=== PATIENT | female | born 1985 | race Caucasian/White ===

== ENCOUNTER → 2017-10-10 | Outpatient (CLI) | payer BC ==
[2017-10-10 09:14] LABS: Basophils % (A) 0 %; Eosinophils # (A) 0.4 k/uL (0-0.7); Eosinophils % (A) 5 %; HCT 37.3 % (34.0-46.0); HGB 12.5 gm/dL (11.4-16.0); Lymphocytes # (A) 1.9 k/uL (1.0-4.8); Lymphocytes % (A) 22 %; MCH 26.9 pg (25.0-35.0); MCHC 33.5 g/dL (31.0-37.0); MCV 80.5 fL (80.0-100.0); Mean Platelet Volume 7.4; Monocytes # (A) 0.4 k/uL (0-1.0); Monocytes % (A) 5 %; Neutrophils # (A) 5.8 k/uL (1.3-7.7); Neutrophils % (A) 67 %; Platelet Count 213 k/uL (150-450); RBC 4.63 m/uL (3.80-5.40); RDW 14.6 % (11.5-15.5); WBC 8.6 k/uL (3.8-10.6)
[2017-10-10 09:47] LABS: ALT 19 U/L (9-52); AST 11 U/L (14-36); Albumin 3.5 g/dL (3.5-5.0); Alkaline Phosphatase 115 U/L (38-126); Anion Gap 9 mmol/L; Blood Urea Nitrogen 14 mg/dL (7-17); Carbon Dioxide 28 mmol/L (22-30); Chloride 102 mmol/L (98-107); Cholesterol 156 mg/dL (<200); Glucose 233 mg/dL (74-99); HDL Cholesterol 56 mg/dL (40-60); LDL Cholesterol,Calculated 77 mg/dL (0-99); Potassium 4.1 mmol/L (3.5-5.1); Sodium 139 mmol/L (137-145); Total Bilirubin 0.4 mg/dL (0.2-1.3); Total Protein 6.1 g/dL (6.3-8.2); Triglycerides 117 mg/dL (<150)
[2017-10-10 10:02] LABS: T4, Free (Free Thyroxine) 1.07 ng/dL (0.78-2.19)
[2017-10-10 20:30] LABS: Hemoglobin A1C 10.7 % (4.0-6.0)
== END | disposition home or self-care (01) ==
LOC: LABWHC1 07:39
PROVIDERS: ATTEND Family Medicine
DX: E03.9 Hypothyroidism, unspecified (principal); E11.65 Type 2 diabetes mellitus with hyperglycemia
CPT/HCPCS: 36415; 80053; 80061; 83036; 84439; 84443; 84481; 85025

== ENCOUNTER → 2018-03-28 | Outpatient (CLI) | payer OTHER ==
[2018-03-28 08:40] LABS: Basophils % (A) 1 %; Eosinophils # (A) 0.3 k/uL (0-0.7); Eosinophils % (A) 4 %; HCT 36.2 % (34.0-46.0); HGB 11.7 gm/dL (11.4-16.0); Hypochromasia Slight; Lymphocytes # (A) 1.9 k/uL (1.0-4.8); Lymphocytes % (A) 23 %; MCH 25.9 pg (25.0-35.0); MCHC 32.3 g/dL (31.0-37.0); MCV 80.3 fL (80.0-100.0); Mean Platelet Volume 7.7; Monocytes # (A) 0.4 k/uL (0-1.0); Monocytes % (A) 4 %; Neutrophils # (A) 5.7 k/uL (1.3-7.7); Neutrophils % (A) 67 %; Platelet Count 230 k/uL (150-450); RDW 13.9 % (11.5-15.5); WBC 8.4 k/uL (3.8-10.6)
[2018-03-28 09:51] LABS: ALT 30 U/L (9-52); AST 15 U/L (14-36); Albumin 3.6 g/dL (3.5-5.0); Alkaline Phosphatase 150 U/L (38-126); Anion Gap 8 mmol/L; Blood Urea Nitrogen 11 mg/dL (7-17); Calcium 9.1 mg/dL (8.4-10.2); Carbon Dioxide 28 mmol/L (22-30); Chloride 103 mmol/L (98-107); Cholesterol 141 mg/dL (<200); Glucose 204 mg/dL (74-99); HDL Cholesterol 50 mg/dL (40-60); LDL Cholesterol,Calculated 63 mg/dL (0-99); Potassium 4.5 mmol/L (3.5-5.1); Sodium 139 mmol/L (137-145); Total Bilirubin 0.3 mg/dL (0.2-1.3); Total Protein 5.9 g/dL (6.3-8.2); Triglycerides 141 mg/dL (<150)
[2018-03-28 17:52] LABS: Hemoglobin A1C 10.2 % (4.0-6.0)
== END | disposition home or self-care (01) ==
LOC: LABWHC1 07:45
PROVIDERS: ATTEND Family Medicine
DX: E11.65 Type 2 diabetes mellitus with hyperglycemia (principal); E03.9 Hypothyroidism, unspecified
CPT/HCPCS: 36415; 80053; 80061; 82043; 82570; 83036; 84443; 85025

== ENCOUNTER 2018-07-16 21:24 | Inpatient (IN) | payer OTHER ==
[2018-07-16 22:54] LABS: INR 2.5 (<1.2); Partial Thromboplastin Time 27.1 sec (22.0-30.0); Prothrombin Time 22.7 sec (9.0-12.0)
[2018-07-16 23:08] LABS: Anisocytosis Slight; HCT 20.5 % (34.0-46.0); Hypochromasia Marked; MCH 26.6 pg (25.0-35.0); MCHC 31.6 g/dL (31.0-37.0); MCV 84.3 fL (80.0-100.0); Mean Platelet Volume 8.8; Platelet Count 268 k/uL (150-450); Poikilocytosis Marked; RBC 2.44 m/uL (3.80-5.40); RDW 16.6 % (11.5-15.5)
[2018-07-16 23:12] LABS: HGB 6.5 gm/dL (11.4-16.0)
[2018-07-16] MEDS ORDERED: NALOXONE 0.4 MG/ML 1 ML VIAL IV PRN (23:23)
[2018-07-16] MEDS ORDERED: ONDANSETRON 4 MG/2 ML VIAL IVP PRN (23:23)
--- NOTE | 2018-07-16 23:32 | ED ---
Female Urogenital HPI - General Chief complaint: Vaginal Bleeding Stated complaint: Sent by DR- blood transfusion Time Seen by Provider: 07/16/18 23:16 Source: patient Limitations: no limitations - History of Present Illness Initial comments: This patient is a 32-year-old woman with history of protein C+S deficiency, previous DVT, who is taking Coumadin. She presents after being directed here from her primary physician's office. She had gone there today to be checked as she was feeling very fatigued and lightheaded and she was having a prolonged period. The patient states that her periods typically last 2 weeks, this one is lasting closer 3, and she is having large blood clots as well. She states that they checked some lab tests at the clinic today and found her hemoglobin to be 6.4. They then directed her to come to the hospital to have a blood transfusion. Complaint: vaginal bleeding Onset/Timin -: week(s) Location: suprapubic Radiation: non-radiating Severity: mild Quality: cramping Consistency: constant Improves with: none Worsens with: none Patient : No Associated Symptoms: vaginal bleeding, shortness of breath - Related Data Home Medications Medication Instructions Recorded Confirmed Aspirin EC [Ecotrin Low Dose] 81 mg PO DAILY 05/24/16 07/16/18 Atorvastatin [Lipitor] 10 mg PO HS 05/24/16 07/16/18 Cholecalciferol [Vitamin D3] 4,000 unit PO DAILY 05/24/16 07/16/18 Ferrous Sulfate [Feosol] 325 mg PO BID 05/24/16 07/16/18 Furosemide [Lasix] 40 mg PO DAILY PRN 05/24/16 07/16/18 L.acidoph,Paracasei, B.lactis 1 cap PO DAILY 05/24/16 07/16/18 [Probiotic] Levothyroxine Sodium [Synthroid] 100 mcg PO DAILY 05/24/16 07/16/18 Lisinopril [Zestril] 10 mg PO DAILY 05/24/16 07/16/18 Magnesium 400 mg PO DAILY 05/24/16 07/16/18 Metoprolol Tartrate [Lopressor] 75 mg PO BID 05/24/16 07/16/18 Multivitamins, Thera [Multivitamin] 1 tab PO DAILY 05/24/16 07/16/18 Omeprazole/Sodium Bicarbonate 1 cap PO DAILY 05/24/16 07/16/18 [Zegerid 20 mg Capsule] Warfarin Sodium [Coumadin] 5 mg PO HS 05/24/16 07/16/18 Insulin Glargine,Hum.rec.anlog 35 unit SQ HS 07/16/18 07/16/18 [Basaglar Kwikpen U-100] Insulin Glargine,Hum.rec.anlog 45 unit SQ DAILY 07/16/18 07/16/18 [Basaglar Kwikpen U-100] Insulin Lispro [Admelog Solostar] See Protocol SQ AC-TID 07/16/18 07/16/18 medroxyPROGESTERone [Provera] 10 mg PO DAILY 07/16/18 07/16/18 Allergies Allergy/AdvReac Type Severity Reaction Status Date / Time clarithromycin [From Biaxin] Allergy Itching Verified 07/16/18 22:15 dapagliflozin [From Farxiga] Allergy Swelling Verified 07/16/18 22:15 Review of Systems ROS Statement: Those systems with pertinent positive or pertinent negative responses have been documented in the HPI. ROS Other: All systems not noted in ROS Statement are negative. Constitutional: Denies: fever, chills Respiratory: Denies: cough, dyspnea Cardiovascular: Denies: chest pain, palpitations, syncope Gastrointestinal: Reports: as per HPI, abdominal pain (Suprapubic cramping). Denies: nausea, vomiting Genitourinary: Reports: abnormal menses. Denies: dysuria, hematuria, discharge Musculoskeletal: Denies: back pain Skin: Denies: rash Neurological: Denies: headache, weakness, paresthesias Hematological/Lymphatic: Reports: easy bleeding (Taking Coumadin) Past Medical History Past Medical History: Diabetes Mellitus, Thyroid Disorder Additional Past Medical History / Comment(s): cardiomyopathy, protein c deficiency History of Any Multi-Drug Resistant Organisms: None Reported Past Surgical History: Cholecystectomy Additional Past Surgical History / Comment(s): pacer/defib placed Past Psychological History: No Psychological Hx Reported Smoking Status: Never smoker Past Alcohol Use History: None Reported Past Drug Use History: None Reported - Past Family History Mother Family Medical History: Diabetes Mellitus Father Family Medical History: Cancer, Chest Pain / Angina, Coronary Artery Disease ( CAD), Hyperlipidemia, Hypertension, Myocardial Infarction ([place]) Additional Family Medical History / Comment(s): lung CA newly diagnosed 2 bypass surgeries General Exam Limitations: no limitations General appearance: alert, obese Head exam: Present: atraumatic, normocephalic Eye exam: Absent: scleral icterus, conjunctival injection Pupils: Present: other (There is conjunctival pallor) ENT exam: Present: normal oropharynx, other (Ur is mucosal pallor) Respiratory exam: Present: normal lung sounds bilaterally. Absent: respiratory distress, wheezes, rales, rhonchi, stridor Cardiovascular Exam: Present: regular rate, normal rhythm, normal heart sounds. Absent: systolic murmur, diastolic murmur, rubs, gallop GI/Abdominal exam: Present: soft. Absent: distended, tenderness, guarding, rebound, rigid, mass External exam: Present: normal external exam Speculum exam: Present: vaginal bleeding, other (The patient does have small amount of blood from the cervix, and there was a dime sized clot that I removed from the vagina.). Absent: vaginal discharge, foreign body, tissue, laceration By manual exam: Absent: cervical motion tenderness, adnexal tenderness, adnexal mass, uterine tenderness Extremities exam: Present: normal inspection, normal capillary refill. Absent: pedal edema, calf tenderness Back exam: Present: normal inspection. Absent: CVA tenderness (R), CVA tenderness (L) Neurological exam: Present: alert Skin exam: Present: warm, dry, intact, pallor. Absent: rash, cyanosis, diaphoretic, petechiae, mottled Course Vital Signs 07/16/18 07/16/18 07/16/18 21:53 22:40 22:41 Temperature 98.1 F Pulse Rate 98 92 Respiratory 18 18 Rate Blood Pressure 92/71 129/72 Blood Pressure [Left Arm] O2 Sat by Pulse 99 100 98 Oximetry 07/16/18 07/16/18 07/16/18 22:42 22:50 23:00 Temperature Pulse Rate 90 88 92 Respiratory Rate Blood Pressure 129/72 129/72 129/72 Blood Pressure [Left Arm] O2 Sat by Pulse 99 99 99 Oximetry 07/16/18 07/16/18 07/16/18 23:10 23:20 23:30 Temperature Pulse Rate 86 95 100 Respiratory Rate Blood Pressure 116/69 116/69 116/69 Blood Pressure [Left Arm] O2 Sat by Pulse 99 99 99 Oximetry 07/16/18 07/16/18 07/16/18 23:40 23:50 23:51 Temperature 97.9 F Pulse Rate 89 87 Respiratory 16 Rate Blood Pressure 122/65 115/69 115/69 Blood Pressure [Left Arm] O2 Sat by Pulse 99 98 98 Oximetry 07/16/18 07/17/18 07/17/18 23:54 00:00 00:01 Temperature 97.9 F Pulse Rate 98 89 Respiratory 18 18 Rate Blood Pressure 115/69 129/69 Blood Pressure 123/62 [Left Arm] O2 Sat by Pulse 100 Oximetry 07/17/18 00:10 Temperature Pulse Rate 107 H Respiratory Rate Blood Pressure 129/69 Blood Pressure [Left Arm] O2 Sat by Pulse Oximetry Medical Decision Making - Medical Decision Making This patient is a 32-year-old woman presenting with anemia, symptomatic, due to vaginal bleeding. The patient's case is discussed with admitting physician, also then discussed with the consultants including Dr. Dover from gynecology, Dr. Engle the grocery supervisor, and Dr. Thornton, hematology. Patient is receiving PRBCs here. Currently Dr. Thornton would like to hold off correcting patient's INR due to her underlying risks of DVT/PE. Should the patient require further transfusions may need to have vitamin K and plasma. Serial hemoglobins be obtained, patient will be then ICU overnight - Lab Data Result diagrams: 07/17/18 04:02 07/17/18 04:02 Lab Results 07/16/18 07/16/18 07/16/18 Range/Units 22:20 22:20 22:20 WBC 12.0 H (3.8-10.6) k/uL RBC 2.44 L (3.80-5.40) m/uL Hgb 6.5 L* (11.4-16.0) gm/dL Hct 20.5 L (34.0-46.0) % MCV 84.3 (80.0-100.0) fL MCH 26.6 (25.0-35.0) pg MCHC 31.6 (31.0-37.0) g/dL RDW 16.6 H (11.5-15.5) % Plt Count 268 (150-450) k/uL Hypochromasia Marked Poikilocytosis Marked Anisocytosis Slight PT 22.7 H (9.0-12.0) sec INR 2.5 H (<1.2) APTT 27.1 (22.0-30.0) sec Sodium (137-145) mmol/L Potassium (3.5-5.1) mmol/L Chloride (98-107) mmol/L Carbon Dioxide (22-30) mmol/L Anion Gap mmol/L BUN (7-17) mg/dL Creatinine (0.52-1.04) mg/dL Est GFR (CKD-EPI)AfAm (>60 ml/min/1.73 sqM) Est GFR (CKD-EPI)NonAf (>60 ml/min/1.73 sqM) Glucose (74-99) mg/dL Calcium (8.4-10.2) mg/dL HCG, Quant mIU/mL Blood Type O Negative Blood Type Confirm Blood Type Recheck CABO Indicated Antibody Screen NEGATIVE Crossmatch See Detail Spec Expiration Date 07/19/2018 - 231907/16/18 07/16/18 Range/Units 22:26 23:21 WBC (3.8-10.6) k/uL RBC (3.80-5.40) m/uL Hgb (11.4-16.0) gm/dL Hct (34.0-46.0) % MCV (80.0-100.0) fL MCH (25.0-35.0) pg MCHC (31.0-37.0) g/dL RDW (11.5-15.5) % Plt Count (150-450) k/uL Hypochromasia Poikilocytosis Anisocytosis PT (9.0-12.0) sec INR (<1.2) APTT (22.0-30.0) sec Sodium 133 L (137-145) mmol/L Potassium 4.0 (3.5-5.1) mmol/L Chloride 100 (98-107) mmol/L Carbon Dioxide 23 (22-30) mmol/L Anion Gap 10 mmol/L BUN 13 (7-17) mg/dL Creatinine 0.54 (0.52-1.04) mg/dL Est GFR (CKD-EPI)AfAm >90 (>60 ml/min/1.73 sqM) Est GFR (CKD-EPI)NonAf >90 (>60 ml/min/1.73 sqM) Glucose 330 H (74-99) mg/dL Calcium 8.8 (8.4-10.2) mg/dL HCG, Quant <2.4 mIU/mL Blood Type Blood Type Confirm O Negative Blood Type Recheck Antibody Screen Crossmatch Spec Expiration Date Critical Care Time Critical Care Time: Yes (50 minutes) Disposition Clinical Impression: Menorrhagia, Anemia Disposition: ADMITTED IP TO THIS HOSP Condition: Serious
[2018-07-16 23:33] LABS: Anion Gap 10 mmol/L; Blood Urea Nitrogen 13 mg/dL (7-17); Calcium 8.8 mg/dL (8.4-10.2); Carbon Dioxide 23 mmol/L (22-30); Chloride 100 mmol/L (98-107); Glucose 330 mg/dL (74-99); Sodium 133 mmol/L (137-145)
[2018-07-16] MEDS: SODIUM CHLORIDE 0.9% 1,000 ML IV SCH (23:45)
[2018-07-16 23:52] LABS: HCG,Quantitative Serum <2.4 mIU/mL
[2018-07-17] MEDS ORDERED: INSULIN REGULAR 100 UNIT/ML VIAL SQ STA ×2 (00:19→03:34)
[2018-07-17 01:01] LABS: Glucose,Whole Blood 368 mg/dL (75-99)
--- NOTE | 2018-07-17 01:39 | US ---
EXAMINATION TYPE: US transvaginal DATE OF EXAM: 07/17/2018 COMPARISON: NONE CLINICAL HISTORY: pain. Heavy bleeding x 2 weeks. TECHNIQUE: Transvaginal (TV). Transabdominal sonographic images of the pelvis were acquired. Trans vaginal sonographic images were medically necessary to better assess the following anatomy: EXAM MEASUREMENTS: Uterus: 8.3 x 4.2 x 5.6 cm Endometrial Stripe: 0.5 cm Right Ovary: 3.2 x 1.8 x 2.1 cm Left Ovary: 2.5 x 1.5 x 2.1 cm 1. Uterus: Anteverted wnl 2. Endometrium: wnl 3. Right Ovary: wnl 4. Left Ovary: Limited due to bowel gas. Spectral, color and waveform doppler imaging shows good arterial and venous flow within the ovaries ; there is no evidence for ovarian torsion. 5. Bilateral Adnexa: wnl 6. Posterior cul-de-sac: wnl IMPRESSION: Normal transvaginal pelvic sonogram. No evidence of ovarian torsion. Normal uterus and en dometrium.
[2018-07-17 02:03] VITALS: BMI 48.9
[2018-07-17 03:43] LABS: Glucose,Whole Blood 387 mg/dL (75-99)
[2018-07-17 04:55] LABS: Anisocytosis Slight; Basophils % (A) 0 %; Eosinophils # (A) 0.2 k/uL (0-0.7); Eosinophils % (A) 3 %; Hypochromasia Marked; Lymphocytes # (A) 2.1 k/uL (1.0-4.8); Lymphocytes % (A) 29 %; MCH 26.6 pg (25.0-35.0); MCHC 30.6 g/dL (31.0-37.0); MCV 86.8 fL (80.0-100.0); Mean Platelet Volume 8.7; Monocytes # (A) 0.3 k/uL (0-1.0); Monocytes % (A) 5 %; Neutrophils # (A) 4.4 k/uL (1.3-7.7); Neutrophils % (A) 61 %; Platelet Count 193 k/uL (150-450); Poikilocytosis Marked; RBC 2.27 m/uL (3.80-5.40); RDW 16.7 % (11.5-15.5); WBC 7.2 k/uL (3.8-10.6)
[2018-07-17 05:07] LABS: Anion Gap 5 mmol/L; Blood Urea Nitrogen 12 mg/dL (7-17); Calcium 8.2 mg/dL (8.4-10.2); Carbon Dioxide 26 mmol/L (22-30); Chloride 103 mmol/L (98-107); Glucose 335 mg/dL (74-99); Magnesium 1.5 mg/dL (1.6-2.3); Phosphorus 3.9 mg/dL (2.5-4.5); Potassium 4.2 mmol/L (3.5-5.1); Sodium 134 mmol/L (137-145)
[2018-07-17 05:28] LABS: HCT 19.7 % (34.0-46.0)
[2018-07-17] MEDS: MAGNESIUM SULFATE-D5W PMX 1 GM in DEXTROSE/WATER 1 100ML.BAG IVPB SCH ×2 (06:33→08:37)
--- NOTE | 2018-07-17 06:49 | P.CON ---
Consult Note - . Consult date: 07/17/18 Assessment/Plan:: This is a 32-year-old white female 0 last menstrual period starting 01/2018. Patient presented to her primary care physician's office yesterday, Dr. Edwards. She was noted to be anemic with a hemoglobin of 6.4 and was sent to the hospital for further evaluation. In the emergency room she was symptomatic and tachycardic, and was therefore admitted for blood transfusion. Patient reports being lightheaded and dizzy. The current menses has lasted for almost 3 weeks. She in addition has passed blood clots approximate the size of an egg. Past [employer] history menarche began at the age of 12, 1-2 month interval of menses, 10-14 day usual duration. Patient states she often passes egg-sized clots but has not previously been symptomatic. She is in a relationship with a female partner, sexually active, but contraception is not an issue. She is not planning . Her most recent Pap smear was within the past year and normal Dr. Edwards's office. She denies history of gonorrhea chlamydia HSV or HPV infections. Social history patient denies alcohol or tobacco use. 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 Current medications are many, including Coumadin 5 mg daily. Please see the chart for details. Past medical history is significant for cardiomyopathy, said to be caused by a virus at age 20. Her wares sorter is Dr. Flores. She has protein C deficiency. She has protein S deficiency. She has hypertension, type 2 diabetes, and hypercholesterolemia. Past surgical history significant for pacemaker and defibrillator placed in 2005 , replaced in 2012, followed by Dr. Flores. She had cholecystectomy in 2007. Family history patient's mother at the age of 54 of unknown causes, she will is said to have diabetes. Father age 64 has multiple heart issues and lung cancer. She has 3/2 sisters of whom she knows little about. ALLERGIES include Biaxin to which reports itchy skin and swelling, and for C. diff to which reports her tongue swelling. On exam she is 5 foot 6 inches, 303 pounds, blood pressure 106/48, pulse 94, temperature 97.8. Patient has good dentition. No obvious thyromegaly. Good range of motion in the neck. Breast exam reveals breast be bilaterally symmetric with no skin dimpling, nipple discharge axillary adenopathy or discernible lesions or masses. Chest is clear to auscultation in all tan. Cardiac exam reveals regular rate and rhythm with slight tachycardia. Abdomen is morbidly obese, no organosplenomegaly. Active bowel sounds. No CVA tenderness. Extremities reveal good peripheral pulses, normal range of motion. On pelvic exam external genitalia is well estrogenized. There is a $0.50 piece size clot in the vagina. Cervix is otherwise firm, long, closed. Uterus is small, anteverted anteflex, nontender. Adnexa are negative bilaterally. Ultrasound has been performed, revealing no pelvic masses, small ovaries bilaterally, no fluid in the cul-de-sac, normal size uterus, endometrial thickness of 5 mm. Impression: Menorrhagia, likely due to anticoagulation for protein S deficiency , protein C deficiency and cardiomyopathy. One unit of packed red cells has been given, hemoglobin remained 6.0. Second unit of packed red blood cells has been ordered. Plan: Because endometrial thickness measures only 5 mm, I do not believe a D&C is warranted for this patient. I agree with transfusion of packed red blood cells. I would strongly recommend change of anticoagulation regime, medical doctors following. If bleeding continues to be an issue despite change of medication, we could consider an endometrial ablation. Thank you for the consultation.
[2018-07-17 07:07] LABS: Glucose,Whole Blood 290 mg/dL (75-99)
[2018-07-17 07:27] LABS: Amorphous Sediment,Urine Rare /hpf; Appearance,Urine Clear (Clear); Bilirubin,Urine Negative (Negative); Blood,Urine Large (Negative); Color,Urine Yellow; Glucose,Urine (UA) 4+ (Negative); Ketones,Urine Negative (Negative); Leukocyte Esterase,Urine Negative (Negative); Mucus,Urine Rare /hpf; Nitrite,Urine Negative (Negative); PH, Urine 5.5 (5.0-8.0); Protein,Urine Trace (Negative); RBC,Urine >182 /hpf (0-5); Squamous Epithelial Cell,Urine <1 /hpf (0-4); Urobilinogen,Urine <2.0 mg/dL (<2.0)
[2018-07-17] MEDS: INSULIN ASPART 100 UNIT/ML 1 ML 10 ML VIAL SQ SCH ×6 (08:15→21:11)
[2018-07-17 08:28] LABS: Glucose,Whole Blood 357 mg/dL (75-99)
[2018-07-17] MEDS: PANTOPRAZOLE 40 MG/10 ML VIAL IV SCH (08:36)
[2018-07-17] MEDS ORDERED: INSULIN DETEMIR 100 UNIT/ML 10 ML VIAL SQ SCH ×3 (09:00→21:00)
--- NOTE | 2018-07-17 09:29 | P.CRDCN ---
History of Present Illness Consult date: 07/17/18 History of present illness: This is a 32-year-old female with history of nonischemic cardiomyopathy, status post AICD placement being followed by Dr. Neri. Patient had a last generator change in 2012. Patient was diagnosed to have nonischemic cardiomyopathy with ejection fraction of 10%. Recent studies showed an ejection fraction about 30% . She was being treated with metoprolol, lisinopril and diuretics. She is admitted now with heavy vaginal bleeding. She claims that usually she has any bleeding, but this time it has been heavier.This resulted in anemia requiring blood transfusion. Patient denies any chest pain or shortness of breath and doesn't appear to be acute distress. Patient had evaluation by pouch maker and apparently no source of bleeding could be identified. It is felt that her bleeding is related to Coumadin. Her INR was 2.9. Has there is definite need for anticoagulation therapy, patient may have to explore the possibility of having a filter or consider hysterectomy to stop the bleeding. I discussed this option with the patient. From cardiac standpoint, Patient is stable. We' ll continue with her cardiac medications and also bolus of IV Lasix after blood transfusion. Review of Systems As per the chart Past Medical History Past Medical History: Diabetes Mellitus, Thyroid Disorder Additional Past Medical History / Comment(s): cardiomyopathy, protein c deficiency History of Any Multi-Drug Resistant Organisms: None Reported Past Surgical History: Cholecystectomy Additional Past Surgical History / Comment(s): pacer/defib placed Past Anesthesia/Blood Transfusion Reactions: No Reported Reaction Type of Cardiac Device: Permanent Pacemaker, AICD Device Placement Date:: 2005 implanted lead change 2012 Past Psychological History: No Psychological Hx Reported Smoking Status: Never smoker Past Alcohol Use History: None Reported Past Drug Use History: None Reported - Past Family History Mother Family Medical History: Diabetes Mellitus Father Family Medical History: Cancer, Chest Pain / Angina, Coronary Artery Disease ( CAD), Hyperlipidemia, Hypertension, Myocardial Infarction ([place]) Additional Family Medical History / Comment(s): lung CA newly diagnosed 2 bypass surgeries Medications and Allergies Home Medications Medication Instructions Recorded Confirmed Type Aspirin EC [Ecotrin Low Dose] 81 mg PO DAILY 05/24/16 07/16/18 History Atorvastatin [Lipitor] 10 mg PO HS 05/24/16 07/16/18 History Cholecalciferol [Vitamin D3] 4,000 unit PO DAILY 05/24/16 07/16/18 History Ferrous Sulfate [Feosol] 325 mg PO BID 05/24/16 07/16/18 History Furosemide [Lasix] 40 mg PO DAILY PRN 05/24/16 07/16/18 History L.acidoph,Paracasei, B.lactis 1 cap PO DAILY 05/24/16 07/16/18 History [Probiotic] Levothyroxine Sodium [Synthroid] 100 mcg PO DAILY 05/24/16 07/16/18 History Lisinopril [Zestril] 10 mg PO DAILY 05/24/16 07/16/18 History Magnesium 400 mg PO DAILY 05/24/16 07/16/18 History Metoprolol Tartrate [Lopressor] 75 mg PO BID 05/24/16 07/16/18 History Multivitamins, Thera [Multivitamin] 1 tab PO DAILY 05/24/16 07/16/18 History Omeprazole/Sodium Bicarbonate 1 cap PO DAILY 05/24/16 07/16/18 History [Zegerid 20 mg Capsule] Warfarin Sodium [Coumadin] 5 mg PO HS 05/24/16 07/16/18 History Insulin Glargine,Hum.rec.anlog 35 unit SQ HS 07/16/18 07/16/18 History [Basaglar Kwikpen U-100] Insulin Glargine,Hum.rec.anlog 45 unit SQ DAILY 07/16/18 07/16/18 History [Basaglar Kwikpen U-100] Insulin Lispro [Admelog Solostar] See Protocol SQ AC-TID 07/16/18 07/16/18 History medroxyPROGESTERone [Provera] 10 mg PO DAILY 07/16/18 07/16/18 History Allergies Allergy/AdvReac Type Severity Reaction Status Date / Time clarithromycin [From Biaxin] Allergy Itching Verified 07/16/18 22:15 dapagliflozin [From Farxiga] Allergy Swelling Verified 07/16/18 22:15 Physical Exam Vitals: Vital Signs Temp Pulse Resp BP BP Pulse Ox 07/17/18 09:00 89 18 116/81 07/17/18 08:00 103 H 8 L 133/88 99 07/17/18 07:23 98.7 F 103 H 16 129/90 98 07/17/18 07:00 98 8 L 117/71 97 11/27/18 06:53 98.3 F 104 H 14 117/73 97 07/17/18 06:43 98.0 F 105 H 18 112/68 97 07/17/18 06:00 91 17 111/59 96 07/17/18 05:00 93 107/56 96 07/17/18 04:00 97.8 F 83 18 105/51 94 L 07/17/18 03:00 89 17 111/68 98 07/17/18 02:50 89 9 L 98 07/17/18 02:40 90 11 L 97 07/17/18 02:30 98 14 95 07/17/18 02:20 95 21 96 07/17/18 02:10 90 17 111/68 97 07/17/18 02:00 98.3 F 90 12 111/68 97 07/17/18 01:50 112 H 14 99 07/17/18 01:40 92 16 99 07/17/18 01:30 98.6 F 91 17 123/62 98 07/17/18 01:20 94 13 97 07/17/18 01:10 109 H 17 123/62 100 07/17/18 01:00 97.6 F 96 13 110/60 98 07/17/18 00:55 94 17 96 07/17/18 00:31 98.3 F 95 18 109/56 97 07/17/18 00:10 107 H 129/69 07/17/18 00:01 97.9 F 89 18 129/69 07/17/18 00:00 98 115/69 100 07/16/18 23:54 18 123/62 07/16/18 23:51 97.9 F 87 16 115/69 98 07/16/18 23:50 89 115/69 98 07/16/18 23:40 122/65 99 07/16/18 23:30 100 116/69 99 07/16/18 23:20 95 116/69 99 07/16/18 23:10 86 116/69 99 07/16/18 23:00 92 129/72 99 07/16/18 22:50 88 129/72 99 07/16/18 22:42 90 129/72 99 07/16/18 22:41 98 07/16/18 22:40 92 18 129/72 100 07/16/18 21:53 98.1 F 98 18 92/71 99 Intake and Output 07/16/18 07/17/18 07/17/18 22:59 06:59 14:59 Intake Total 410 240 Output Total 600 700 Balance -190 -460 Intake: IV 100 40 Sodium Chloride 0.9% 1, 100 40 000 ml @ 20 mls/hr IV . Q24H [facility] Rx#:[id number] Oral 200 Blood Product 310 Rc As-1 Unit 0 [id number] Rc Pheresis As3 Unit 310 [id number] Output: Urine 600 700 Other: Voiding Method Bedside Commode # Voids 1 1 Weight 137.438 kg 132.2 kg GENERAL EXAM: Patient is alert and oriented and doesn't appear to be in any acute distress HEENT: Normocephalic. Normal reaction of pupils, equal size, normal range of extraocular motion. No erythema or exudates in the throat. NECK: No masses, no nuchal rigidity. CHEST: No chest wall deformity. LUNGS: Equal air entry with no crackles or wheeze. HEART: S1 and S2 normal with no audible mumurs or gallops. Regular rhythm, femorals equal on both sides.. ABDOMEN: No hepatosplenomegaly, normal bowel sounds, no guarding or rigidity. SKIN: No rashes CENTRAL NERVOUS SYSTEM: No focal deficits. EXTREMITIES: No cyanosis, clubbing or edema. Results 07/17/18 04:02 07/17/18 04:02 Coagulation 07/16/18 Range/Units 22:20 PT 22.7 H (9.0-12.0) sec APTT 27.1 (22.0-30.0) sec CBC 07/16/18 07/17/18 Range/Units 22:20 04:02 WBC 12.0 H 7.2 (3.8-10.6) k/uL RBC 2.44 L 2.27 L (3.80-5.40) m/uL Hgb 6.5 L* 6.0 L* (11.4-16.0) gm/dL Hct 20.5 L 19.7 L* (34.0-46.0) % Plt Count 268 193 (150-450) k/uL Comprehensive Metabolic Panel 07/16/18 07/17/18 Range/Units 22:26 04:02 Sodium 133 L 134 L (137-145) mmol/L Potassium 4.0 4.2 (3.5-5.1) mmol/L Chloride 100 103 (98-107) mmol/L Carbon Dioxide 23 26 (22-30) mmol/L BUN 13 12 (7-17) mg/dL Creatinine 0.54 0.42 L (0.52-1.04) mg/dL Glucose 330 H 335 H (74-99) mg/dL Calcium 8.8 8.2 L (8.4-10.2) mg/dL Current Medications Generic Name Dose Route Start Last Admin Trade Name Freq PRN Reason Stop Dose Admin Acetaminophen 650 mg 07/16/18 23:23 Tylenol Tab PO Q6HR PRN Mild Pain or Fever > 100.5 Sodium Chloride 1,000 mls @ 20 mls/hr 07/16/18 23:30 07/16/18 23:45 Saline 0.9% IV 20 mls/hr .Q24H [facility] Administration Insulin Aspart 0 unit 07/17/18 07:00 07/17/18 08:38 Novolog SQ 10 unit ACHS [facility] Administration Protocol Insulin Detemir 15 unit 07/17/18 21:00 Levemir SQ HS [facility] Insulin Detemir 20 unit 07/17/18 09:00 07/17/18 08:39 Levemir SQ 20 unit DAILY [facility] Administration Lisinopril 5 mg 07/18/18 09:00 Zestril PO DAILY [facility] Metoprolol Tartrate 75 mg 07/17/18 09:22 Lopressor PO BID [facility] Naloxone HCl 0.2 mg 07/16/18 23:23 Narcan IV Q2M PRN Opioid Reversal Ondansetron HCl 4 mg 07/16/18 23:23 Zofran IVP Q8HR PRN Nausea And Vomiting Pantoprazole Sodium 40 mg 07/17/18 09:00 07/17/18 08:36 Protonix IV 40 mg DAILY [facility] Administration Intake and Output 07/16/18 07/17/18 07/17/18 22:59 06:59 14:59 Intake Total 410 240 Output Total 600 700 Balance -190 -460 Intake: IV 100 40 Sodium Chloride 0.9% 1, 100 40 000 ml @ 20 mls/hr IV . Q24H [facility] Rx#:[id number] Oral 200 Blood Product 310 Rc As-1 Unit 0 [id number] Rc Pheresis As3 Unit 310 [id number] Output: Urine 600 700 Other: Voiding Method Bedside Commode # Voids 1 1 Weight 137.438 kg 132.2 kg 07/17/18 04:02 07/17/18 04:02 EKG Interpretations (text) None available Assessment and Plan (1) Cardiomyopathy Current Visit: Yes Status: Acute Code(s): I42.9 - CARDIOMYOPATHY, UNSPECIFIED SNOMED Code(s): 72359017 (2) Chronic congestive heart failure Current Visit: Yes Status: Acute Code(s): I50.9 - HEART FAILURE, UNSPECIFIED SNOMED Code(s): 28316911 (3) Cardiac defibrillator in place Current Visit: Yes Status: Acute Code(s): Z95.810 - PRESENCE OF AUTOMATIC ( IMPLANTABLE) CARDIAC DEFIBRILLATOR SNOMED Code(s): 908577000 Plan: Continue with current management. Resume home medications including beta chavez and CESAR inhibitor. Use bolus of Lasix after transfusion. We'll continue to follow
--- NOTE | 2018-07-17 09:58 | P.CNPUL ---
History of Present Illness Consult date: 07/17/18 Requesting physician: Laurie Dover Reason for consult: other Chief complaint: Vaginal bleeding History of present illness: This is a 32-year-old white female patient of Dr. Edwards, who presented to the emergency department on 07/16/2018 for evaluation of 2 week history of vaginal bleeding, passing clots, fatigue, lightheadedness. Patient has a history of protein C and S deficiency, previous DVT and pulmonary embolism on chronic anticoagulation with Coumadin. Other medical history includes diabetes mellitus, hypothyroidism, hypertension, nonischemic cardiomyopathy with an EF of 30% with AICD placement. Patient had her hemoglobin checked, and he was found to be at 6.4, and she was directed to come to the emergency department for a blood transfusion. Patient was also having some suprapubic cramping, and mild shortness of breath. Initial blood work revealed hemoglobin of 6.5, EDC of 12.0, INR was 2.5, sodium was 133, the rest of the electrolytes and renal profiles were within normal limits. HCG test was stent 2.4, urinalysis showed 4 + glucose, negative for leuks and nitrites. Patient was transfused with 1 unit of packed red blood cells yesterday, this morning her hemoglobin is 6.0, patient is receiving another unit of packed red blood cells and patient has active vaginal bleeding. She was seen in consultation by PER DI[facility] INTERPRETER, and no D&C was warranted for this patient at this time. Patient is seen in the intensive care unit, she is resting comfortably in bed, she denies any distress, no breathing difficulty, no chest pain, no lightheadedness or dizziness. She has mild suprapubic cramping. She is mildly tachycardic with a heart rate of 103 bpm, she is afebrile, hemodynamically stable, not requiring any vasopressor support. Currently on room air, and the pulse ox is 99%. Review of Systems All systems: negative Constitutional: Denies chills, Denies fever Eyes: denies blurred vision, denies pain Ears, nose, mouth and throat: Denies headache, Denies sore throat Cardiovascular: Reports lightheadedness, Denies chest pain, Denies shortness of breath Respiratory: Reports dyspnea, Denies cough Gastrointestinal: Denies abdominal pain, Denies diarrhea, Denies nausea, Denies vomiting Genitourinary: Reports menorrhagia, Denies dysuria, Denies hematuria Musculoskeletal: Denies myalgias Integumentary: Denies pruritus, Denies rash Neurological: Denies numbness, Denies weakness Psychiatric: Denies anxiety, Denies depression Endocrine: Denies fatigue, Denies weight change Past Medical History Past Medical History: Diabetes Mellitus, Thyroid Disorder Additional Past Medical History / Comment(s): cardiomyopathy, protein c deficiency History of Any Multi-Drug Resistant Organisms: None Reported Past Surgical History: Cholecystectomy Additional Past Surgical History / Comment(s): pacer/defib placed Past Anesthesia/Blood Transfusion Reactions: No Reported Reaction Type of Cardiac Device: Permanent Pacemaker, AICD Device Placement Date:: 2005 implanted lead change 2012 Past Psychological History: No Psychological Hx Reported Smoking Status: Never smoker Past Alcohol Use History: None Reported Past Drug Use History: None Reported - Past Family History Mother Family Medical History: Diabetes Mellitus Father Family Medical History: Cancer, Chest Pain / Angina, Coronary Artery Disease ( CAD), Hyperlipidemia, Hypertension, Myocardial Infarction ([place]) Additional Family Medical History / Comment(s): lung CA newly diagnosed 2 bypass surgeries Medications and Allergies Home Medications Medication Instructions Recorded Confirmed Type Aspirin EC [Ecotrin Low Dose] 81 mg PO DAILY 05/24/16 07/16/18 History Atorvastatin [Lipitor] 10 mg PO HS 05/24/16 07/16/18 History Cholecalciferol [Vitamin D3] 4,000 unit PO DAILY 05/24/16 07/16/18 History Ferrous Sulfate [Feosol] 325 mg PO BID 05/24/16 07/16/18 History Furosemide [Lasix] 40 mg PO DAILY PRN 05/24/16 07/16/18 History L.acidoph,Paracasei, B.lactis 1 cap PO DAILY 05/24/16 07/16/18 History [Probiotic] Levothyroxine Sodium [Synthroid] 100 mcg PO DAILY 05/24/16 07/16/18 History Lisinopril [Zestril] 10 mg PO DAILY 05/24/16 07/16/18 History Magnesium 400 mg PO DAILY 05/24/16 07/16/18 History Metoprolol Tartrate [Lopressor] 75 mg PO BID 05/24/16 07/16/18 History Multivitamins, Thera [Multivitamin] 1 tab PO DAILY 05/24/16 07/16/18 History Omeprazole/Sodium Bicarbonate 1 cap PO DAILY 05/24/16 07/16/18 History [Zegerid 20 mg Capsule] Warfarin Sodium [Coumadin] 5 mg PO HS 05/24/16 07/16/18 History Insulin Glargine,Hum.rec.anlog 35 unit SQ HS 07/16/18 07/16/18 History [Basaglar Kwikpen U-100] Insulin Glargine,Hum.rec.anlog 45 unit SQ DAILY 07/16/18 07/16/18 History [Basaglar Kwikpen U-100] Insulin Lispro [Admelog Solostar] See Protocol SQ AC-TID 07/16/18 07/16/18 History medroxyPROGESTERone [Provera] 10 mg PO DAILY 07/16/18 07/16/18 History Allergies Allergy/AdvReac Type Severity Reaction Status Date / Time clarithromycin [From Biaxin] Allergy Itching Verified 07/16/18 22:15 dapagliflozin [From Farxiga] Allergy Swelling Verified 07/16/18 22:15 Physical Exam Vitals: Vital Signs Temp Pulse Resp BP BP Pulse Ox 07/17/18 09:00 89 18 116/81 07/17/18 08:00 103 H 8 L 133/88 99 07/17/18 07:23 98.7 F 103 H 16 129/90 98 07/17/18 07:00 98 8 L 117/71 97 07/17/18 06:53 98.3 F 104 H 14 117/73 97 07/17/18 06:43 98.0 F 105 H 18 112/68 97 07/17/18 06:00 91 17 111/59 96 07/17/18 05:00 93 107/56 96 07/17/18 04:00 97.8 F 83 18 105/51 94 L 07/17/18 03:00 89 17 111/68 98 07/17/18 02:50 89 9 L 98 07/17/18 02:40 90 11 L 97 07/17/18 02:30 98 14 95 07/17/18 02:20 95 21 96 07/17/18 02:10 90 17 111/68 97 07/17/18 02:00 98.3 F 90 12 111/68 97 07/17/18 01:50 112 H 14 99 07/17/18 01:40 92 16 99 07/17/18 01:30 98.6 F 91 17 123/62 98 07/17/18 01:20 94 13 97 07/17/18 01:10 109 H 17 123/62 100 07/17/18 01:00 97.6 F 96 13 110/60 98 07/17/18 00:55 94 17 96 07/17/18 00:31 98.3 F 95 18 109/56 97 07/17/18 00:10 107 H 129/69 07/17/18 00:01 97.9 F 89 18 129/69 07/17/18 00:00 98 115/69 100 07/16/18 23:54 18 123/62 07/16/18 23:51 97.9 F 87 16 115/69 98 07/16/18 23:50 89 115/69 98 07/16/18 23:40 122/65 99 07/16/18 23:30 100 116/69 99 07/16/18 23:20 95 116/69 99 07/16/18 23:10 86 116/69 99 07/16/18 23:00 92 129/72 99 07/16/18 22:50 88 129/72 99 07/16/18 22:42 90 129/72 99 07/16/18 22:41 98 07/16/18 22:40 92 18 129/72 100 07/16/18 21:53 98.1 F 98 18 92/71 99 Intake and Output 07/16/18 07/17/18 07/17/18 22:59 06:59 14:59 Intake Total 410 240 Output Total 600 700 Balance -190 -460 Intake: IV 100 40 Sodium Chloride 0.9% 1, 100 40 000 ml @ 20 mls/hr IV . Q24H [facility] Rx#:[id number] Oral 200 Blood Product 310 Rc As-1 Unit 0 [id number] Rc Pheresis As3 Unit 310 [id number] Output: Urine 600 700 Other: Voiding Method Bedside Commode # Voids 1 1 Weight 137.438 kg 132.2 kg GENERAL EXAM: Alert, pleasant 32-year-old white female comfortable in no apparent distress. HEAD: Normocephalic/atraumatic. EYES: Normal reaction of pupils, equal size. Conjunctiva pink, sclera white. NOSE: Clear with pink turbinates. THROAT: No erythema or exudates. NECK: No masses, no JVD, no thyroid enlargement, no adenopathy. CHEST: No chest wall deformity. Symmetrical expansion. LUNGS: Equal air entry with no crackles, wheeze, rhonchi or dullness. CVS: Regular rate and rhythm, normal S1 and S2, no gallops, no murmurs, no rubs ABDOMEN: Soft, nontender. No hepatosplenomegaly, normal bowel sounds, no guarding or rigidity. EXTREMITIES: No clubbing, no edema, no cyanosis, 2+ pulses and upper and lower extremities. MUSCULOSKELETAL: Muscle strength and tone normal. SPINE: No scoliosis or deformity SKIN: No rashes CENTRAL NERVOUS SYSTEM: Alert and oriented -3. No focal deficits, tone is normal in all 4 extremities. PSYCHIATRIC: Alert and oriented -3. Appropriate affect. Intact judgment and insight. Results - Laboratory Findings CBC and BMP: 07/17/18 04:02 07/17/18 04:02 PT/INR, D-dimer PT 22.7 sec (9.0-12.0) H 07/16/18 22:20 INR 2.5 (<1.2) H 07/16/18 22:20 Abnormal lab findings: Abnormal Labs 07/16/18 07/16/18 07/16/18 22:20 22:20 22:20 WBC 12.0 H RBC 2.44 L Hgb 6.5 L* Hct 20.5 L MCHC RDW 16.6 H PT 22.7 H INR 2.5 H Sodium Creatinine Glucose POC Glucose (mg/dL) Calcium Magnesium Urine Protein Urine Glucose (UA) Urine Blood Urine RBC Urine WBC Amorphous Sediment Urine Mucus Crossmatch See Detail 07/16/18 07/17/18 07/17/18 22:26 00:49 03:31 WBC RBC Hgb Hct MCHC RDW PT INR Sodium 133 L Creatinine Glucose 330 H POC Glucose (mg/dL) 368 H 387 H Calcium Magnesium Urine Protein Urine Glucose (UA) Urine Blood Urine RBC Urine WBC Amorphous Sediment Urine Mucus Crossmatch 07/17/18 07/17/18 07/17/18 04:02 04:02 06:50 WBC RBC 2.27 L Hgb 6.0 L* Hct 19.7 L* MCHC 30.6 L RDW 16.7 H PT INR Sodium 134 L Creatinine 0.42 L Glucose 335 H POC Glucose (mg/dL) Calcium 8.2 L Magnesium 1.5 L Urine Protein Trace H Urine Glucose (UA) 4+ H Urine Blood Large H Urine RBC >182 H Urine WBC 20 H Amorphous Sediment Rare H Urine Mucus Rare H Crossmatch 07/17/18 07/17/18 06:55 08:17 WBC RBC Hgb Hct MCHC RDW PT INR Sodium Creatinine Glucose POC Glucose (mg/dL) 290 H 357 H Calcium Magnesium Urine Protein Urine Glucose (UA) Urine Blood Urine RBC Urine WBC Amorphous Sediment Urine Mucus Crossmatch - Diagnostic Findings Additional studies: Transvaginal ultrasound results reviewed Assessment and Plan Plan: Assessment: #1. Acute blood loss anemia related to menorrhagia, admission hemoglobin was 6.5, and patient is receiving 2 units of packed red blood cells #2. History of protein C and S deficiency, history of DVT on chronic anticoagulation with Coumadin #3. History of nonischemic cardiomyopathy with ejection fraction of 30%, status post AICD placement #4. Diabetes mellitus type 2 #5. Hypothyroidism #6. Lifetime nonsmoker Plan: Patient is receiving second unit of packed red blood cells this morning, Coumadin is on hold. Case was discussed with the PER [employer] INTERPRETER service,no surgical intervention at this time, continue to monitor. She is hemodynamically stable, no dyspnea, no chest pain, no lightheadedness. Will remain in the intensive care unit today, continue with serial H&H's. Cardiology consultation was noted. Continue with GI and DVT prophylaxis. We'll continue to follow I performed a history & physical examination of the patient and discussed their management with my nurse practitioner, Elizabeth Minor. I reviewed the nurse practitioner's note and agree with the documented findings and plan of care. Lung sounds are clear. The findings and the impression was discussed with the patient. I attest to the documentation by the nurse practitioner. Time with Patient: Greater than 30
[2018-07-17] MEDS ORDERED: FUROSEMIDE 10 MG/ML 2 ML VIAL IV ONE (10:11)
[2018-07-17] MEDS: ACETAMINOPHEN TAB 325 MG TAB PO PRN ×2 (11:27→17:10)
[2018-07-17 12:05] LABS: Glucose,Whole Blood 229 mg/dL (75-99)
[2018-07-17] MEDS: METOPROLOL TARTRATE 50 MG TAB PO SCH ×2 (12:36→20:59)
[2018-07-17 12:41] LABS: Anisocytosis Slight; HCT 23.3 % (34.0-46.0); Hypochromasia Marked; MCH 27.9 pg (25.0-35.0); MCHC 32.8 g/dL (31.0-37.0); MCV 85.2 fL (80.0-100.0); Mean Platelet Volume 7.6; Platelet Count 207 k/uL (150-450); Poikilocytosis Marked; RBC 2.73 m/uL (3.80-5.40); RDW 16.4 % (11.5-15.5)
[2018-07-17 12:51] LABS: HGB 7.6 gm/dL (11.4-16.0)
[2018-07-17 12:53] LABS: INR 2.7 (<1.2); Prothrombin Time 24.4 sec (9.0-12.0)
--- NOTE | 2018-07-17 13:22 | P.PN ---
Progress Note - Text Progress Note Date: 07/17/[address] hong not dr cooney
[2018-07-17] MEDS: OCTREOTIDE 200 MCG in SODIUM CHLORIDE 0.9% 100 ML IV SCH (15:29)
[2018-07-17 17:05] LABS: Anisocytosis Slight; HCT 25.6 % (34.0-46.0); HGB 8.3 gm/dL (11.4-16.0); Hypochromasia Marked; MCH 27.1 pg (25.0-35.0); MCHC 32.4 g/dL (31.0-37.0); MCV 83.9 fL (80.0-100.0); Mean Platelet Volume 7.9; Platelet Count 287 k/uL (150-450); Poikilocytosis Marked; RBC 3.05 m/uL (3.80-5.40); RDW 16.4 % (11.5-15.5); WBC 10.5 k/uL (3.8-10.6)
[2018-07-17 17:43] LABS: Glucose,Whole Blood 182 mg/dL (75-99)
[2018-07-17 18:41] LABS: Hemoglobin A1C 7.8 % (4.0-6.0)
--- NOTE | 2018-07-17 20:02 | P.CONS ---
History of Present Illness - Reason for Consult Consult date: 07/17/18 Protein C and S deficiency and Anemia on Warfarin Requesting physician: Wally Ambriz - Chief Complaint Vaginal Bleeding - History of Present Illness 32-year-old white female LMP 06/26/2018. Patient presented to her primary care physician's office yesterday, Dr. Edwards. She was noted to to have a hemoglobin of 6.4 and was sent to the hospital for further evaluation. In the emergency room she was symptomatic and tachycardic, and was therefore admitted for blood transfusion. SHe has been maintained on warfarin therapy for apparent Protein C and S deficiency although this diagnosis was made greater then 10 years ago at the time she was diagnosed with Pulmonary embolisms. Hematology has been consulted for further evaluation of anemia from acute blood loss while on warfarin therapy Review of Systems A 14 point review of systems assessed and completed and all negative except HPI Past Medical History Past Medical History: Diabetes Mellitus, Thyroid Disorder Additional Past Medical History / Comment(s): cardiomyopathy, protein c deficiency History of Any Multi-Drug Resistant Organisms: None Reported Past Surgical History: Cholecystectomy Additional Past Surgical History / Comment(s): pacer/defib placed Past Anesthesia/Blood Transfusion Reactions: No Reported Reaction Type of Cardiac Device: Permanent Pacemaker, AICD Device Placement Date:: 2005 implanted lead change 2012 Past Psychological History: No Psychological Hx Reported Smoking Status: Never smoker Past Alcohol Use History: None Reported Past Drug Use History: None Reported - Past Family History Mother Family Medical History: Diabetes Mellitus Father Family Medical History: Cancer, Chest Pain / Angina, Coronary Artery Disease ( CAD), Hyperlipidemia, Hypertension, Myocardial Infarction ([place]) Additional Family Medical History / Comment(s): lung CA newly diagnosed 2 bypass surgeries Medications and Allergies Home Medications Medication Instructions Recorded Confirmed Type Aspirin EC [Ecotrin Low Dose] 81 mg PO DAILY 05/24/16 07/16/18 History Atorvastatin [Lipitor] 10 mg PO HS 05/24/16 07/16/18 History Cholecalciferol [Vitamin D3] 4,000 unit PO DAILY 05/24/16 07/16/18 History Ferrous Sulfate [Feosol] 325 mg PO BID 05/24/16 07/16/18 History Furosemide [Lasix] 40 mg PO DAILY PRN 05/24/16 07/16/18 History L.acidoph,Paracasei, B.lactis 1 cap PO DAILY 05/24/16 07/16/18 History [Probiotic] Levothyroxine Sodium [Synthroid] 100 mcg PO DAILY 05/24/16 07/16/18 History Lisinopril [Zestril] 10 mg PO DAILY 05/24/16 07/16/18 History Magnesium 400 mg PO DAILY 05/24/16 07/16/18 History Metoprolol Tartrate [Lopressor] 75 mg PO BID 05/24/16 07/16/18 History Multivitamins, Thera [Multivitamin] 1 tab PO DAILY 05/24/16 07/16/18 History Omeprazole/Sodium Bicarbonate 1 cap PO DAILY 05/24/16 07/16/18 History [Zegerid 20 mg Capsule] Warfarin Sodium [Coumadin] 5 mg PO HS 05/24/16 07/16/18 History Insulin Glargine,Hum.rec.anlog 35 unit SQ HS 07/16/18 07/16/18 History [Basaglar Kwikpen U-100] Insulin Glargine,Hum.rec.anlog 45 unit SQ DAILY 07/16/18 07/16/18 History [Basaglar Kwikpen U-100] Insulin Lispro [Admelog Solostar] See Protocol SQ AC-TID 07/16/18 07/16/18 History medroxyPROGESTERone [Provera] 10 mg PO DAILY 07/16/18 07/16/18 History Allergies Allergy/AdvReac Type Severity Reaction Status Date / Time clarithromycin [From Biaxin] Allergy Itching Verified 07/16/18 22:15 dapagliflozin [From Farxiga] Allergy Swelling Verified 07/16/18 22:15 Physical Exam Vitals: Vital Signs Temp Pulse Resp BP BP Pulse Ox 07/17/18 14:00 95 26 H 113/66 96 07/17/18 13:00 99 21 132/78 96 07/17/18 12:00 97.6 F 101 H 11 L 137/81 98 07/17/18 11:00 93 18 127/79 95 07/17/18 10:05 98.5 F 90 16 131/70 95 07/17/18 10:00 90 18 121/72 07/17/18 09:00 89 18 116/81 07/17/18 08:00 103 H 8 L 133/88 99 07/17/18 07:23 98.7 F 103 H 16 129/90 98 07/17/18 07:00 98 8 L 117/71 97 07/17/18 06:53 98.3 F 104 H 14 117/73 97 07/17/18 06:43 98.0 F 105 H 18 112/68 97 07/17/18 06:00 91 17 111/59 96 07/17/18 05:00 93 107/56 96 07/17/18 04:00 97.8 F 83 18 105/51 94 L 07/17/18 03:00 89 17 111/68 98 07/17/18 02:50 89 9 L 98 07/17/18 02:40 90 11 L 97 07/17/18 02:30 98 14 95 07/17/18 02:20 95 21 96 07/17/18 02:10 90 17 111/68 97 07/17/18 02:00 98.3 F 90 12 111/68 97 07/17/18 01:50 112 H 14 99 07/17/18 01:40 92 16 99 07/17/18 01:30 98.6 F 91 17 123/62 98 07/17/18 01:20 94 13 97 07/17/18 01:10 109 H 17 123/62 100 07/17/18 01:00 97.6 F 96 13 110/60 98 07/17/18 00:55 94 17 96 07/17/18 00:31 98.3 F 95 18 109/56 97 07/17/18 00:10 107 H 129/69 07/17/18 00:01 97.9 F 89 18 129/69 07/17/18 00:00 98 115/69 100 07/16/18 23:54 18 123/62 07/16/18 23:51 97.9 F 87 16 115/69 98 07/16/18 23:50 89 115/69 98 07/16/18 23:40 122/65 99 07/16/18 23:30 100 116/69 99 07/16/18 23:20 95 116/69 99 07/16/18 23:10 86 116/69 99 07/16/18 23:00 92 129/72 99 07/16/18 22:50 88 129/72 99 07/16/18 22:42 90 129/72 99 07/16/18 22:41 98 07/16/18 22:40 92 18 129/72 100 07/16/18 21:53 98.1 F 98 18 92/71 99 Intake and Output 07/16/18 07/17/18 07/17/18 22:59 06:59 14:59 Intake Total 410 750 Output Total 600 1300 Balance -190 -550 Intake: IV 100 140 Sodium Chloride 0.9% 1, 100 140 000 ml @ 20 mls/hr IV . Q24H COUNTS INCLUDE 234 BEDS AT [facility] Rx#:[id number] Oral 300 Blood Product 310 310 Rc As-1 Unit 0 310 [id number] Rc Pheresis As3 Unit 310 [id number] Output: Urine 600 1300 Other: Voiding Method Bedside Commode Bedside Commode # Voids 1 1 Weight 137.438 kg 132.2 kg GENERAL EXAM: Patient is alert and oriented HEENT: Normocephalic. Normal reaction of pupils, No erythema or exudates in the throat. NECK: No masses, supple CHEST: No increased effort noted LUNGS: CTA Equal air entry with no crackles or wheeze. HEART: S1 and S2 Regular rhythm, ABDOMEN: No hepatosplenomegaly, normal bowel sounds, no guarding or rigidity. SKIN: No rashes NEURO: No focal deficits. EXTREMITIES: No cyanosis, clubbing or edema. No Rash Results CBC & Chem 7: 07/18/18 15:33 07/18/18 04:12 Labs: Abnormal Lab Results - Last 24 Hours (Table) 07/16/18 07/16/18 07/16/18 Range/Units 22:20 22:20 22:20 WBC 12.0 H (3.8-10.6) k/uL RBC 2.44 L (3.80-5.40) m/uL Hgb 6.5 L* (11.4-16.0) gm/dL Hct 20.5 L (34.0-46.0) % MCHC (31.0-37.0) g/dL RDW 16.6 H (11.5-15.5) % PT 22.7 H (9.0-12.0) sec INR 2.5 H (<1.2) Sodium (137-145) mmol/L Creatinine (0.52-1.04) mg/dL Glucose (74-99) mg/dL POC Glucose (mg/dL) (75-99) mg/dL Calcium (8.4-10.2) mg/dL Magnesium (1.6-2.3) mg/dL Urine Protein (Negative) Urine Glucose (UA) (Negative) Urine Blood (Negative) Urine RBC (0-5) /hpf Urine WBC (0-5) /hpf Amorphous Sediment (None) /hpf Urine Mucus (None) /hpf Crossmatch See Detail 07/16/18 07/17/18 07/17/18 Range/Units 22:26 00:49 03:31 WBC (3.8-10.6) k/uL RBC (3.80-5.40) m/uL Hgb (11.4-16.0) gm/dL Hct (34.0-46.0) % MCHC (31.0-37.0) g/dL RDW (11.5-15.5) % PT (9.0-12.0) sec INR (<1.2) Sodium 133 L (137-145) mmol/L Creatinine (0.52-1.04) mg/dL Glucose 330 H (74-99) mg/dL POC Glucose (mg/dL) 368 H 387 H (75-99) mg/dL Calcium (8.4-10.2) mg/dL Magnesium (1.6-2.3) mg/dL Urine Protein (Negative) Urine Glucose (UA) (Negative) Urine Blood (Negative) Urine RBC (0-5) /hpf Urine WBC (0-5) /hpf Amorphous Sediment (None) /hpf Urine Mucus (None) /hpf Crossmatch 07/17/18 07/17/18 07/17/18 Range/Units 04:02 04:02 06:50 WBC (3.8-10.6) k/uL RBC 2.27 L (3.80-5.40) m/uL Hgb 6.0 L* (11.4-16.0) gm/dL Hct 19.7 L* (34.0-46.0) % MCHC 30.6 L (31.0-37.0) g/dL RDW 16.7 H (11.5-15.5) % PT (9.0-12.0) sec INR (<1.2) Sodium 134 L (137-145) mmol/L Creatinine 0.42 L (0.52-1.04) mg/dL Glucose 335 H (74-99) mg/dL POC Glucose (mg/dL) (75-99) mg/dL Calcium 8.2 L (8.4-10.2) mg/dL Magnesium 1.5 L (1.6-2.3) mg/dL Urine Protein Trace H (Negative) Urine Glucose (UA) 4+ H (Negative) Urine Blood Large H (Negative) Urine RBC >182 H (0-5) /hpf Urine WBC 20 H (0-5) /hpf Amorphous Sediment Rare H (None) /hpf Urine Mucus Rare H (None) /hpf Crossmatch 07/17/18 07/17/18 07/17/18 Range/Units 06:55 08:17 11:53 WBC (3.8-10.6) k/uL RBC (3.80-5.40) m/uL Hgb (11.4-16.0) gm/dL Hct (34.0-46.0) % MCHC (31.0-37.0) g/dL RDW (11.5-15.5) % PT (9.0-12.0) sec INR (<1.2) Sodium (137-145) mmol/L Creatinine (0.52-1.04) mg/dL Glucose (74-99) mg/dL POC Glucose (mg/dL) 290 H 357 H 229 H (75-99) mg/dL Calcium (8.4-10.2) mg/dL Magnesium (1.6-2.3) mg/dL Urine Protein (Negative) Urine Glucose (UA) (Negative) Urine Blood (Negative) Urine RBC (0-5) /hpf Urine WBC (0-5) /hpf Amorphous Sediment (None) /hpf Urine Mucus (None) /hpf Crossmatch 07/17/18 07/17/18 Range/Units 12:14 12:14 WBC (3.8-10.6) k/uL RBC 2.73 L (3.80-5.40) m/uL Hgb 7.6 L D (11.4-16.0) gm/dL Hct 23.3 L (34.0-46.0) % MCHC (31.0-37.0) g/dL RDW 16.4 H (11.5-15.5) % PT 24.4 H (9.0-12.0) sec INR 2.7 H (<1.2) Sodium (137-145) mmol/L Creatinine (0.52-1.04) mg/dL Glucose (74-99) mg/dL POC Glucose (mg/dL) (75-99) mg/dL Calcium (8.4-10.2) mg/dL Magnesium (1.6-2.3) mg/dL Urine Protein (Negative) Urine Glucose (UA) (Negative) Urine Blood (Negative) Urine RBC (0-5) /hpf Urine WBC (0-5) /hpf Amorphous Sediment (None) /hpf Urine Mucus (None) /hpf Crossmatch Microbiology - Last 24 Hours (Table) 07/17/18 06:50 Urine Culture - Preliminary Urine,Voided Assessment and Plan Plan: Assessment and Recommendations: 1. Menhorrhagia: - Improved since admission - Per Sandostatin 50mcg IVPB x1, then 25mcg/hrx12 hours is recommendation 2. Acute Blood Loss Anemia on Warfarin: - Bleeding improving, sandostatin per Dr. Wilson 3. Hx: Pulmonary Embolism and on Warfarin from outside hospital greater than 12 years. - Apparent Protein C and S Deficiency (?) - Patient was not coagulopathic on Warfarin and recs are not to stop as she has a high risk of hypercoagulability - Continue Warfarin per Dr. Wilson and monitor CBC and PT/INR Closely 4. Hx: Ischemic Cardiomyopathy
--- NOTE | 2018-07-17 20:35 | HP ---
HISTORY AND PHYSICAL DATE OF ADMISSION: 07/16/2018 DATE OF SERVICE: 07/17/2018 PRESENTING COMPLAINT: Weak, tired, dizzy. HISTORY OF PRESENTING COMPLAINT: This is a very pleasant 32-year-old patient of Dr. Edwards. 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 She also has an AICD and patient is also on Coumadin for history of pulmonary embolism. She also has hypothyroidism and diabetes. Patient normally gets egg-sized blood clots during her menstrual cycle, which is normally prolonged. On this occasion, her vaginal bleeding has gone on for close to 3 weeks. Patient became dizzy, lightheaded, presented to her family doctor, Dr. Edwards. She was found to have a hemoglobin of 6.4 and was sent to the hospital, admitted to the ICU. She did get a unit of blood. Repeat hemoglobin was 6, and a second unit was ordered earlier today when I saw this patient this morning. Subsequently, Hematology did order Sandostatin drip at 25 mcg. Patient does feel somewhat better. REVIEW OF SYSTEMS: CONSTITUTIONAL: Weak, tired. HEENT: Light-headed, dizzy. RESPIRATORY: None. CARDIOVASCULAR: None. GASTROINTESTINAL: None. GENITOURINARY: As above. MUSCULOSKELETAL: None. DERMATOLOGICAL: None. HEMATOLOGICAL: None. LYMPHATICS: None. PSYCHIATRY: None. NEUROLOGICAL: None. PAST MEDICAL HISTORY: 1. Diabetes mellitus, type 2, on insulin. 2. Hypothyroid. 3. 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 4. Protein C and S deficiency, on Coumadin. 5. Chronic pulmonary embolism. 6. AICD. PAST SURGICAL HISTORY: 1. Cholecystectomy. 2. Pacemaker. 3. Defibrillator. SOCIAL HISTORY: Does not smoke or drink alcohol. Lives with her female jose alfredo. Works in the athletic department, [employer]. FAMILY HISTORY: Diabetes and lung cancer. HOME MEDICATIONS: 1. Provera 10 mg p.o. daily. 2. Coumadin 5 mg p.o. at bedtime. 3. Zegerid 20 mg 1 capsule p.o. daily. 4. Multivitamin 1 tablet p.o. daily. 5. Lopressor 25 mg p.o. b.i.d. 6. Magnesium 400 mg p.o. daily. 7. Zestril 10 mg p.o. daily. 8. Synthroid 100 mcg p.o. daily. 9. Probiotic 1 capsule p.o. daily. 10.Insulin Lispro per protocol. 11.Insulin Glargine 35 units at night, 45 units in the morning. 12.Lasix 40 mg daily. 13.Iron 325 p.o. b.i.d. 14.Vitamin D3 4000 units p.o. daily. 15.Lipitor 10 mg at bedtime. 16.Aspirin 81 mg p.o. daily. ALLERGIES: 1. BIAXIN. 2. FARXIGA. PHYSICAL EXAMINATION: VITAL SIGNS ON PRESENTATION: Temperature 98.1, pulse 90, respiration 18, blood pressure 92/71, pulse ox 99% on room air. GENERAL APPEARANCE: Well built; BMI 47. Sitting up on edge of a chair, awake. EYES: Pupils equal. Conjunctivae pale. HEENT: External appearance of nose and ears normal. Oral cavity normal. NECK: JVD not raised. Mass not palpable. RESPIRATORY: Effort normal. Lungs are clear. CARDIOVASCULAR: First and second sounds normal. No edema. ABDOMEN: Soft, non-tender. Liver and spleen not palpable. LYMPHATIC: No lymph node palpable in neck or axillae. PSYCHIATRY: Alert and oriented x3. Mood and affect normal. NEUROLOGICAL: Pupils equal. Cranial nerves grossly intact. Power and sensation grossly intact. INVESTIGATIONS: Lab work done in the clinical context. White count 12, hemoglobin 6.5 repeat 6. Platelets 268. INR 2.5. Potassium 4, BUN 13, creatinine 0.54. Accu-Cheks 330, 368, 387. Quantitative hCG 2.4. Transvaginal ultrasound shows a normal transvaginal pelvic sonogram. ASSESSMENT: 1. Acute severe blood loss anemia, symptomatic, from severe menorrhagia. 2. Acute on chronic severe menorrhagia from patient being on Coumadin. 3. Morbid obesity with body mass index of 47. 4. Diabetes mellitus, type 2, chronically on insulin, uncontrolled with hyperglycemia. 5. Hypothyroid. 6. Chronic cardiomyopathy with systolic dysfunction, ejection fraction 30%, with a viral etiology. 7. Protein C and S deficiency. 8. Chronic pulmonary embolism, for which patient is on Coumadin. 9. Automated implantable cardioverter defibrillator. PLAN: Patient was getting a second unit of blood today. Once the bleeding stops, patient will probably need endometrial ablation. It seems patient does not want to have any children. Dr. Dover from [facility] did see the patient. I am not sure at this point if any change of anticoagulation will change her clinical picture, except we are to wait it out and hold off Coumadin at the present time. Because of patient's high risk of clotting, will not reverse the Coumadin. Patient's Accu-Cheks will be closely followed. Consultation was requested of Critical Care, Hematology, Gynecology. Care was discussed in detail with the patient. Patient is in the ICU. MMODL / IJN: [id number] /
[2018-07-17] MEDS: ATORVASTATIN 10 MG TAB PO SCH (21:00)
[2018-07-17 21:14] LABS: Glucose,Whole Blood 148 mg/dL (75-99)
[2018-07-18] MEDS: SODIUM CHLORIDE 0.9% 1,000 ML IV SCH (04:39)
[2018-07-18] MEDS: ACETAMINOPHEN TAB 325 MG TAB PO PRN ×2 (04:40→20:31)
[2018-07-18 05:19] LABS: INR 2.6 (<1.2); Prothrombin Time 23.6 sec (9.0-12.0)
[2018-07-18 05:22] LABS: ALT 26 U/L (9-52); AST 29 U/L (14-36); Albumin 2.9 g/dL (3.5-5.0); Alkaline Phosphatase 79 U/L (38-126); Anion Gap 6 mmol/L; Blood Urea Nitrogen 10 mg/dL (7-17); Calcium 8.2 mg/dL (8.4-10.2); Carbon Dioxide 25 mmol/L (22-30); Chloride 107 mmol/L (98-107); Glucose 87 mg/dL (74-99); Phosphorus 5.4 mg/dL (2.5-4.5); Potassium 3.8 mmol/L (3.5-5.1); Sodium 138 mmol/L (137-145); Total Bilirubin 0.6 mg/dL (0.2-1.3); Total Protein 5.2 g/dL (6.3-8.2)
[2018-07-18 05:23] LABS: Anisocytosis Slight; Basophils % (A) 1 %; Eosinophils # (A) 0.2 k/uL (0-0.7); Eosinophils % (A) 2 %; HCT 22.7 % (34.0-46.0); Hypochromasia Marked; Lymphocytes # (A) 1.4 k/uL (1.0-4.8); Lymphocytes % (A) 22 %; MCH 26.9 pg (25.0-35.0); MCHC 31.1 g/dL (31.0-37.0); MCV 86.7 fL (80.0-100.0); Mean Platelet Volume 7.4; Monocytes # (A) 0.3 k/uL (0-1.0); Monocytes % (A) 5 %; Neutrophils # (A) 4.4 k/uL (1.3-7.7); Neutrophils % (A) 68 %; Platelet Count 211 k/uL (150-450); Poikilocytosis Marked; RBC 2.61 m/uL (3.80-5.40); RDW 16.2 % (11.5-15.5); WBC 6.5 k/uL (3.8-10.6)
[2018-07-18] MEDS ORDERED: POTASSIUM CHLORIDE ER 20 MEQ TAB.ER PO SCH (06:00)
[2018-07-18] MEDS: LEVOTHYROXINE 100 MCG TAB PO SCH (06:44)
--- NOTE | 2018-07-18 07:16 | P.PN ---
Subjective Progress Note Date: 07/18/18 Principal diagnosis: Vaginal bleeding Pulmonary/critical care note dated July 18 This is a 32-year-old female who presents with acute anemia secondary to vaginal bleeding. This morning, her hemoglobin is 7. Yesterday it was 8.3. Since she has been here, she's received 2 units of packed red blood cells. The bleeding has really slowed down quite a bit. She is having minimal bleeding currently. She's not receiving any supplemental oxygen. Occasionally she is on 2 L nasal cannula. She's getting a saline IV at O and she is on octreotide 25 g per hour but I turned off this morning. Her INR is 2.6. In addition to the vaginal bleeding, she has a history of protein C&S deficiency and a previous history of DVT, nonischemic cardiomyopathy with an ejection fraction of 30%, status post AICD, diabetes obesity hypothyroidism. Currently, the patient is doing reasonably well. She has no pain. She denies any difficulty breathing coughing wheezing or phlegm production. She denies any nausea vomiting diarrhea. As I mentioned, the bleeding has slowed significantly. Objective - Vital Signs Vital signs: Vital Signs Temp 98.1 F 07/18/18 00:00 Pulse 77 07/18/18 06:00 Resp 15 07/18/18 06:00 BP 119/67 07/18/18 06:00 Pulse Ox 95 07/18/18 06:00 Intake & Output 07/17/18 07/18/18 07/18/18 18:59 06:59 18:59 Intake Total 1830 341 Output Total 2500 Balance -670 341 Intake: IV 240 240 Sodium Chloride 0.9% 1, 240 240 000 ml @ 20 mls/hr IV . Q24H [facility] Rx#:[id number] Intake, IV Titration 100 101 Amount Octreotide 200 mcg In 100 101 Sodium Chloride 0.9% 100 ml @ 25 MCG/HR 12.62 mls/ hr IV .Q8H1M [facility] Rx#: [id number] Oral 1180 Blood Product 310 Rc As-1 Unit 310 [id number] Output: Urine 2500 Other: Voiding Method Bedside Commode Bedside Commode # Voids 1 1 # Bowel Movements 1 1 - Exam No acute distress, oriented 3. Nasal O2 at [address] HEENT examination is grossly unremarkable. Mucous membranes are moist. No oral lesions. Neck supple. Full range of motion. No adenopathy thyromegaly or neck vein distention. Cardiovascular examination reveals regular rhythm rate. S1-S2 normal. No S3 or S4. No discernible murmur noted. Heart sounds are distant. Lungs reveal clear breath sounds. Breath sounds are equal bilaterally. No adventitious lung sounds including wheezes rhonchi or crackles. Abdomen soft bowel sounds are heard. No masses or tenderness. Abdomen is obese. Extremities are intact. No cyanosis clubbing or edema. Skin is without rash or lesion. Neurologic examination is brief but nonfocal. - Labs CBC & Chem 7: 07/18/18 04:12 07/18/18 04:12 Labs: Abnormal Lab Results - Last 24 Hours (Table) 07/16/18 07/17/18 07/17/18 Range/Units 22:20 04:02 06:50 RBC (3.80-5.40) m/uL Hgb (11.4-16.0) gm/dL Hct (34.0-46.0) % RDW (11.5-15.5) % PT (9.0-12.0) sec INR (<1.2) Creatinine (0.52-1.04) mg/dL POC Glucose (mg/dL) (75-99) mg/dL Hemoglobin A1c 7.8 H (4.0-6.0) % Calcium (8.4-10.2) mg/dL Phosphorus (2.5-4.5) mg/dL Total Protein (6.3-8.2) g/dL Albumin (3.5-5.0) g/dL Urine Protein Trace H (Negative) Urine Glucose (UA) 4+ H (Negative) Urine Blood Large H (Negative) Urine RBC >182 H (0-5) /hpf Urine WBC 20 H (0-5) /hpf Amorphous Sediment Rare H (None) /hpf Urine Mucus Rare H (None) /hpf Crossmatch See Detail 07/17/18 07/17/18 07/17/18 Range/Units 08:17 11:53 12:14 RBC 2.73 L (3.80-5.40) m/uL Hgb 7.6 L D (11.4-16.0) gm/dL Hct 23.3 L (34.0-46.0) % RDW 16.4 H (11.5-15.5) % PT (9.0-12.0) sec INR (<1.2) Creatinine (0.52-1.04) mg/dL POC Glucose (mg/dL) 357 H 229 H (75-99) mg/dL Hemoglobin A1c (4.0-6.0) % Calcium (8.4-10.2) mg/dL Phosphorus (2.5-4.5) mg/dL Total Protein (6.3-8.2) g/dL Albumin (3.5-5.0) g/dL Urine Protein (Negative) Urine Glucose (UA) (Negative) Urine Blood (Negative) Urine RBC (0-5) /hpf Urine WBC (0-5) /hpf Amorphous Sediment (None) /hpf Urine Mucus (None) /hpf Crossmatch 07/17/18 07/17/18 07/17/18 Range/Units 12:14 16:42 17:32 RBC 3.05 L (3.80-5.40) m/uL Hgb 8.3 L (11.4-16.0) gm/dL Hct 25.6 L (34.0-46.0) % RDW 16.4 H (11.5-15.5) % PT 24.4 H (9.0-12.0) sec INR 2.7 H (<1.2) Creatinine (0.52-1.04) mg/dL POC Glucose (mg/dL) 182 H (75-99) mg/dL Hemoglobin A1c (4.0-6.0) % Calcium (8.4-10.2) mg/dL Phosphorus (2.5-4.5) mg/dL Total Protein (6.3-8.2) g/dL Albumin (3.5-5.0) g/dL Urine Protein (Negative) Urine Glucose (UA) (Negative) Urine Blood (Negative) Urine RBC (0-5) /hpf Urine WBC (0-5) /hpf Amorphous Sediment (None) /hpf Urine Mucus (None) /hpf Crossmatch 07/17/18 07/18/18 07/18/18 Range/Units 21:02 04:12 04:12 RBC 2.61 L (3.80-5.40) m/uL Hgb 7.0 L (11.4-16.0) gm/dL Hct 22.7 L (34.0-46.0) % RDW 16.2 H (11.5-15.5) % PT (9.0-12.0) sec INR (<1.2) Creatinine 0.49 L (0.52-1.04) mg/dL POC Glucose (mg/dL) 148 H (75-99) mg/dL Hemoglobin A1c (4.0-6.0) % Calcium 8.2 L (8.4-10.2) mg/dL Phosphorus 5.4 H (2.5-4.5) mg/dL Total Protein 5.2 L (6.3-8.2) g/dL Albumin 2.9 L (3.5-5.0) g/dL Urine Protein (Negative) Urine Glucose (UA) (Negative) Urine Blood (Negative) Urine RBC (0-5) /hpf Urine WBC (0-5) /hpf Amorphous Sediment (None) /hpf Urine Mucus (None) /hpf Crossmatch 07/18/18 Range/Units 04:12 RBC (3.80-5.40) m/uL Hgb (11.4-16.0) gm/dL Hct (34.0-46.0) % RDW (11.5-15.5) % PT 23.6 H (9.0-12.0) sec INR 2.6 H (<1.2) Creatinine (0.52-1.04) mg/dL POC Glucose (mg/dL) (75-99) mg/dL Hemoglobin A1c (4.0-6.0) % Calcium (8.4-10.2) mg/dL Phosphorus (2.5-4.5) mg/dL Total Protein (6.3-8.2) g/dL Albumin (3.5-5.0) g/dL Urine Protein (Negative) Urine Glucose (UA) (Negative) Urine Blood (Negative) Urine RBC (0-5) /hpf Urine WBC (0-5) /hpf Amorphous Sediment (None) /hpf Urine Mucus (None) /hpf Crossmatch Microbiology - Last 24 Hours (Table) 07/17/18 06:50 Urine Culture - Preliminary Urine,Voided Assessment and Plan Assessment: Assessment Acute anemia, secondary to vaginal bleeding, exacerbated by the patient's anticoagulation History of protein C&S deficiency with a previous history of DVT History of nonischemic cardiomyopathy with ejection fraction at 30%, status post AICD placement History of diabetes mellitus Hypothyroidism Morbid obesity Hyperlipidemia History of hypertension. Plan: Plan dated 07/18/2018 Current laboratory includes a white count of 6.5, hemoglobin 7 hematocrit 22.7 and platelet count 211,000. PT is 23.6 with an INR of 2.6. Sodium potassium chloride CO2 anion gap BUN and creatinine are all normal. Microbiologic studies are negative. No chest x-ray was done. Octreotide was discontinued. Additional recommendations and suggestions are forthcoming. The patient will be closely monitored. She may need some additional blood. No blood in the current time. We'll continue to watch her hemoglobin and hematocrit. We'll also continue to monitor her PT and INR. Prognosis is guarded. Should she continue to bleed, we may need to stop anticoagulation consider ablation and/or filter placement. Critical care time 36 minutes Time with Patient: Greater than 30
[2018-07-18 07:26] LABS: Glucose,Whole Blood 190 mg/dL (75-99)
[2018-07-18] MEDS ORDERED: SUMAtriptan SUCCINATE 50 MG TAB PO STA (07:54)
[2018-07-18] MEDS: INSULIN ASPART 100 UNIT/ML 1 ML 10 ML VIAL SQ SCH ×6 (08:03→21:24)
--- NOTE | 2018-07-18 08:30 | P.PN ---
Subjective Progress Note Date: 07/18/18 Scant vaginal drainage. Patient states she is feeling well. No current complaints. Objective - Vital Signs Vital signs: Vital Signs Temp 98.1 F 07/18/18 00:00 Pulse 79 07/18/18 07:00 Resp 9 L 07/18/18 07:00 BP 125/78 07/18/18 07:00 Pulse Ox 94 L 07/18/18 07:00 Intake & Output 07/17/18 07/18/18 07/18/18 18:59 06:59 18:59 Intake Total 1830 341 40 Output Total 2500 Balance -670 341 40 Intake: IV 240 240 40 Sodium Chloride 0.9% 1, 240 240 40 000 ml @ 20 mls/hr IV . Q24H [facility] Rx#:[id number] Intake, IV Titration 100 101 Amount Octreotide 200 mcg In 100 101 Sodium Chloride 0.9% 100 ml @ 25 MCG/HR 12.62 mls/ hr IV .Q8H1M [facility] Rx#: [id number] Oral 1180 Blood Product 310 Rc As-1 Unit 310 [id number] Output: Urine 2500 Other: Voiding Method Bedside Commode Bedside Commode # Voids 1 1 # Bowel Movements 1 1 - Constitutional General appearance: Present: morbidly obese - EENT Eyes: Present: PERRLA ENT: Present: hearing grossly normal - Respiratory Respiratory: bilateral: CTA - Cardiovascular Rhythm: regular - Gastrointestinal General gastrointestinal: Present: normal bowel sounds - Integumentary Integumentary: Present: normal - Neurologic Neurologic: Present: CNII-XII intact - Musculoskeletal Musculoskeletal: Present: gait normal - Psychiatric Psychiatric: Present: A&O x's 3, appropriate affect, intact judgment & insight - Labs CBC & Chem 7: 07/18/18 04:12 07/18/18 04:12 Labs: Abnormal Lab Results - Last 24 Hours (Table) 07/16/18 07/17/18 07/17/18 Range/Units 22:20 04:02 08:17 RBC (3.80-5.40) m/uL Hgb (11.4-16.0) gm/dL Hct (34.0-46.0) % RDW (11.5-15.5) % PT (9.0-12.0) sec INR (<1.2) Creatinine (0.52-1.04) mg/dL POC Glucose (mg/dL) 357 H (75-99) mg/dL Hemoglobin A1c 7.8 H (4.0-6.0) % Calcium (8.4-10.2) mg/dL Phosphorus (2.5-4.5) mg/dL Total Protein (6.3-8.2) g/dL Albumin (3.5-5.0) g/dL Crossmatch See Detail 07/17/18 07/17/18 07/17/18 Range/Units 11:53 12:14 12:14 RBC 2.73 L (3.80-5.40) m/uL Hgb 7.6 L D (11.4-16.0) gm/dL Hct 23.3 L (34.0-46.0) % RDW 16.4 H (11.5-15.5) % PT 24.4 H (9.0-12.0) sec INR 2.7 H (<1.2) Creatinine (0.52-1.04) mg/dL POC Glucose (mg/dL) 229 H (75-99) mg/dL Hemoglobin A1c (4.0-6.0) % Calcium (8.4-10.2) mg/dL Phosphorus (2.5-4.5) mg/dL Total Protein (6.3-8.2) g/dL Albumin (3.5-5.0) g/dL Crossmatch 07/17/18 07/17/18 07/17/18 Range/Units 16:42 17:32 21:02 RBC 3.05 L (3.80-5.40) m/uL Hgb 8.3 L (11.4-16.0) gm/dL Hct 25.6 L (34.0-46.0) % RDW 16.4 H (11.5-15.5) % PT (9.0-12.0) sec INR (<1.2) Creatinine (0.52-1.04) mg/dL POC Glucose (mg/dL) 182 H 148 H (75-99) mg/dL Hemoglobin A1c (4.0-6.0) % Calcium (8.4-10.2) mg/dL Phosphorus (2.5-4.5) mg/dL Total Protein (6.3-8.2) g/dL Albumin (3.5-5.0) g/dL Crossmatch 07/18/18 07/18/18 07/18/18 Range/Units 04:12 04:12 04:12 RBC 2.61 L (3.80-5.40) m/uL Hgb 7.0 L (11.4-16.0) gm/dL Hct 22.7 L (34.0-46.0) % RDW 16.2 H (11.5-15.5) % PT 23.6 H (9.0-12.0) sec INR 2.6 H (<1.2) Creatinine 0.49 L (0.52-1.04) mg/dL POC Glucose (mg/dL) (75-99) mg/dL Hemoglobin A1c (4.0-6.0) % Calcium 8.2 L (8.4-10.2) mg/dL Phosphorus 5.4 H (2.5-4.5) mg/dL Total Protein 5.2 L (6.3-8.2) g/dL Albumin 2.9 L (3.5-5.0) g/dL Crossmatch 07/18/18 Range/Units 07:14 RBC (3.80-5.40) m/uL Hgb (11.4-16.0) gm/dL Hct (34.0-46.0) % RDW (11.5-15.5) % PT (9.0-12.0) sec INR (<1.2) Creatinine (0.52-1.04) mg/dL POC Glucose (mg/dL) 190 H (75-99) mg/dL Hemoglobin A1c (4.0-6.0) % Calcium (8.4-10.2) mg/dL Phosphorus (2.5-4.5) mg/dL Total Protein (6.3-8.2) g/dL Albumin (3.5-5.0) g/dL Crossmatch Microbiology - Last 24 Hours (Table) 07/17/18 06:50 Urine Culture - Preliminary Urine,Voided Assessment and Plan Assessment: Menorrhagia with secondary anemia, secondary to anticoagulation regime. Bleeding is scant at this time. Patient feeling greatly improved. Plan: Patient has been placed on Provera 10 mg daily per the medical team. She may continue this, however overall additional weight gain is to be expected. I discussed with her the option of endometrial ablation. At this time the endometrium is only 5 mm and bleeding has markedly improved. Continue management per medical team, consider altering anticoagulation regime versus [place] filter. I will see the patient in the office in 2 weeks for continued follow-up. Thank you for the consultation. Time with Patient: Greater than 30
[2018-07-18] MEDS ORDERED: INSULIN DETEMIR 100 UNIT/ML 10 ML VIAL SQ SCH ×2 (09:00→21:00)
--- NOTE | 2018-07-18 09:26 | CT ---
EXAMINATION TYPE: CT brain wo con DATE OF EXAM: 07/18/2018 COMPARISON: None HISTORY: 32-year-old female severe headache Headache TECHNIQUE: Examination was done in axial plane without intravenous contrast. Coronal and sagittal r econstructions performed. CT DLP: 1075.4 mGycm Automated exposure control for dose reduction was used. FINDINGS: There is no evidence of acute intracranial hemorrhage, acute ischemic changes, mass, mass-effect, or extra-axial fluid collection. There is no effacement of cerebral sulci or basal subarachnoid cister ns. There is no hydrocephalus. There is no midline shift. Luz-white matter distinction is preserv ed. There is some nonspecific midline posterior calcifications that do not follow the course of the cereb ral veins. Additional pineal gland calcification and some nonspecific dural based calcifications chela g the falx anteriorly. Additional choroid plexus calcifications noted. Paranasal sinuses and mastoid air cells well pneumatized. Cerumen within the bilateral external audit ory canals. IMPRESSION: Curvilinear area of calcification along the midline just above the pineal gland. Given patient's symp toms and slightly unusual position of calcifications, consider short interval CT or MRI follow-up to exclude the less likely possibility of acute thrombus in a deep cerebral vein. Otherwise, no acute intracranial abnormality seen.
--- NOTE | 2018-07-18 09:43 | P.PN ---
Subjective Progress Note Date: 07/18/18 This is a 32-year-old female with history of cardiomyopathy status post AICD placement, was admitted to the hospital with vaginal bleeding and anemia. Her INR was about 2.9. Patient was on Coumadin for history of DVT and pulmonary emboli. Today bleeding has slowed down and patient is feeling better. However , patient was having severe headache. She had a computed tomography scan of the head which did not reveal any intracranial bleeding. However, repeat computed tomography scan is recommended in about 3 days. From cardiac standpoint, patient is stable. Gynecology suggest that patient be tried alternative anticoagulation therapy or Chava filter. Continue current cardiac medical therapy. Objective - Vital Signs Vital signs: Vital Signs Temp 98.1 F 07/18/18 00:00 Pulse 79 07/18/18 07:00 Resp 9 L 07/18/18 07:00 BP 125/78 07/18/18 07:00 Pulse Ox 94 L 07/18/18 07:00 Intake & Output 07/17/18 07/18/18 07/18/18 18:59 06:59 18:59 Intake Total 1830 341 40 Output Total 2500 Balance -670 341 40 Intake: IV 240 240 40 Sodium Chloride 0.9% 1, 240 240 40 000 ml @ 20 mls/hr IV . Q24H [facility] Rx#:[id number] Intake, IV Titration 100 101 Amount Octreotide 200 mcg In 100 101 Sodium Chloride 0.9% 100 ml @ 25 MCG/HR 12.62 mls/ hr IV .Q8H1M [facility] Rx#: [id number] Oral 1180 Blood Product 310 Rc As-1 Unit 310 [id number] Output: Urine 2500 Other: Voiding Method Bedside Commode Bedside Commode # Voids 1 1 # Bowel Movements 1 1 - Exam GENERAL EXAM: Patient is alert and oriented and doesn't appear to be in any acute distress HEENT: Normocephalic. Normal reaction of pupils, equal size, normal range of extraocular motion. No erythema or exudates in the throat. NECK: No masses, no nuchal rigidity. CHEST: No chest wall deformity. LUNGS: Equal air entry with no crackles or wheeze. HEART: S1 and S2 normal with no audible mumurs or gallops. Regular rhythm, femorals equal on both sides.. ABDOMEN: No hepatosplenomegaly, normal bowel sounds, no guarding or rigidity. SKIN: No rashes CENTRAL NERVOUS SYSTEM: No focal deficits. EXTREMITIES: No cyanosis, clubbing or edema. - Labs CBC & Chem 7: 07/18/18 04:12 07/18/18 04:12 Labs: Abnormal Lab Results - Last 24 Hours (Table) 07/16/18 07/17/18 07/17/18 Range/Units 22:20 04:02 11:53 RBC (3.80-5.40) m/uL Hgb (11.4-16.0) gm/dL Hct (34.0-46.0) % RDW (11.5-15.5) % PT (9.0-12.0) sec INR (<1.2) Creatinine (0.52-1.04) mg/dL POC Glucose (mg/dL) 229 H (75-99) mg/dL Hemoglobin A1c 7.8 H (4.0-6.0) % Calcium (8.4-10.2) mg/dL Phosphorus (2.5-4.5) mg/dL Total Protein (6.3-8.2) g/dL Albumin (3.5-5.0) g/dL Crossmatch See Detail 07/17/18 07/17/18 07/17/18 Range/Units 12:14 12:14 16:42 RBC 2.73 L 3.05 L (3.80-5.40) m/uL Hgb 7.6 L D 8.3 L (11.4-16.0) gm/dL Hct 23.3 L 25.6 L (34.0-46.0) % RDW 16.4 H 16.4 H (11.5-15.5) % PT 24.4 H (9.0-12.0) sec INR 2.7 H (<1.2) Creatinine (0.52-1.04) mg/dL POC Glucose (mg/dL) (75-99) mg/dL Hemoglobin A1c (4.0-6.0) % Calcium (8.4-10.2) mg/dL Phosphorus (2.5-4.5) mg/dL Total Protein (6.3-8.2) g/dL Albumin (3.5-5.0) g/dL Crossmatch 07/17/18 07/17/1807/18/18 Range/Units 17:32 21:02 04:12 RBC 2.61 L (3.80-5.40) m/uL Hgb 7.0 L (11.4-16.0) gm/dL Hct 22.7 L (34.0-46.0) % RDW 16.2 H (11.5-15.5) % PT (9.0-12.0) sec INR (<1.2) Creatinine (0.52-1.04) mg/dL POC Glucose (mg/dL) 182 H 148 H (75-99) mg/dL Hemoglobin A1c (4.0-6.0) % Calcium (8.4-10.2) mg/dL Phosphorus (2.5-4.5) mg/dL Total Protein (6.3-8.2) g/dL Albumin (3.5-5.0) g/dL Crossmatch 07/18/18 07/18/18 07/18/18 Range/Units 04:12 04:12 07:14 RBC (3.80-5.40) m/uL Hgb (11.4-16.0) gm/dL Hct (34.0-46.0) % RDW (11.5-15.5) % PT 23.6 H (9.0-12.0) sec INR 2.6 H (<1.2) Creatinine 0.49 L (0.52-1.04) mg/dL POC Glucose (mg/dL) 190 H (75-99) mg/dL Hemoglobin A1c (4.0-6.0) % Calcium 8.2 L (8.4-10.2) mg/dL Phosphorus 5.4 H (2.5-4.5) mg/dL Total Protein 5.2 L (6.3-8.2) g/dL Albumin 2.9 L (3.5-5.0) g/dL Crossmatch Microbiology - Last 24 Hours (Table) 07/17/18 06:50 Urine Culture - Preliminary Urine,Voided Assessment and Plan (1) Cardiomyopathy Current Visit: Yes Status: Acute Code(s): I42.9 - CARDIOMYOPATHY, UNSPECIFIED SNOMED Code(s): 48183287 (2) Chronic congestive heart failure Current Visit: Yes Status: Acute Code(s): I50.9 - HEART FAILURE, UNSPECIFIED SNOMED Code(s): 31717309 (3) Cardiac defibrillator in place Current Visit: Yes Status: Acute Code(s): Z95.810 - PRESENCE OF AUTOMATIC ( IMPLANTABLE) CARDIAC DEFIBRILLATOR SNOMED Code(s): 329751095 Plan: Patient is bleeding is slowing down. Cardiac-pillai, patient is stable. Continue current medical therapy. Discussed with Dr. Engle. At this point we' ll continue the Coumadin therapy. If she were to have recurrence of the bleeding, patient to be constricted for Chava filter. Follow-up with Dr. Neri as an outpatient.
[2018-07-18] MEDS: METOPROLOL TARTRATE 50 MG TAB PO SCH ×2 (10:14→20:30)
[2018-07-18] MEDS: PANTOPRAZOLE 40 MG/10 ML VIAL IV SCH (10:14)
[2018-07-18] MEDS: medroxyPROGESTERone 10 MG TABLET PO SCH (10:14)
[2018-07-18] MEDS: LISINOPRIL 5 MG TAB PO SCH (10:14)
[2018-07-18 10:30] LABS: Glucose,Whole Blood 295 mg/dL (75-99)
--- NOTE | 2018-07-18 11:45 | CDI ---
Last Revision, July 2017 Documentation Clarification Form Date: 07/18/2018 11:25:03 AM From: Carol Toledo RN, CCDS Admit Date: 07/16/2018 11:24:00 PM Patient Name: Jelly Delcid Visit Number: [id number] Discharge Date: ATTENTION: The Clinical Documentation Specialists (CDI) and [facility] Coding Staff appreciate your assistance in clarifying documentation. Please respond to the clarification below the line at the bottom and electronically sign. The CDI & [facility] Coding staff will review the response and follow-up if needed. Please note: Queries are made part of the Legal Health Record. If you have any questions, please contact the author of this message via ITS. Anjana Garcia MD Patient present for complaints of vaginal bleeding and in your documentation chronic congestive heart failure is noted and further clarification is requested. History/Risk Factors: Nonischemic Cardiomyopathy, Diabetes mellitus, DVT, Pulmonary emboli, Protein c deficiency, AICD Clinical Indicators: Chronic congestive heart failure is in your consult and progress notes with patient history of nonischemic cardiomyopathy. Recent studies showed an ejection fraction about 30 % VS/Pulse OX: 134/82 86 18 97.5 Echocardiogram Results: EF about 30 % ( per progress notes on 07/17/18) Treatment: Lasix IV x1 Lopressor PO Zestril PO In your professional opinion, can you please clarify the type of CHF if known? Chronic Systolic Heart Failure: Chronic Diastolic Heart Failure: Chronic Systolic & Diastolic Heart Failure: Unable to Determine Other, please specify Please continue to document in your progress notes and discharge summary in order to capture severity of illness and risk of mortality. Include clinical findings that support your diagnosis. __chronic systolic hesrt failure MTDD
[2018-07-18 12:12] LABS: Glucose,Whole Blood 296 mg/dL (75-99)
[2018-07-18] MEDS ORDERED: INSULIN ASPART 100 UNIT/ML 1 ML 10 ML VIAL SQ SCH (12:30)
[2018-07-18 16:41] LABS: HCT 27.1 % (34.0-46.0); HGB 7.8 gm/dL (11.4-16.0); Hypochromasia Marked; MCH 26.2 pg (25.0-35.0); MCHC 28.8 g/dL (31.0-37.0); MCV 90.8 fL (80.0-100.0); Mean Platelet Volume 7.5; Platelet Count 263 k/uL (150-450); Poikilocytosis Marked; RBC 2.99 m/uL (3.80-5.40); RDW 15.7 % (11.5-15.5); WBC 9.1 k/uL (3.8-10.6)
[2018-07-18 17:27] LABS: Glucose,Whole Blood 259 mg/dL (75-99)
[2018-07-18] MEDS: ATORVASTATIN 10 MG TAB PO SCH (20:31)
[2018-07-18] MEDS: OCTREOTIDE 200 MCG in SODIUM CHLORIDE 0.9% 100 ML IV SCH ×3 (20:33)
[2018-07-18 20:48] LABS: Glucose,Whole Blood 324 mg/dL (75-99)
[2018-07-18] MEDS: INSULIN DETEMIR 100 UNIT/ML 10 ML VIAL SQ SCH (21:23)
--- NOTE | 2018-07-18 22:45 | P.PN ---
Subjective Progress Note Date: 07/18/18 Principal diagnosis: Anemia, Bleeding on AC therapy Jelly is improving today, hgb stable and she states she is only spotting a little, bleeding is almost resolved. Objective - Vital Signs Vital signs: Vital Signs Temp 98.1 F 07/18/18 12:00 Pulse 87 07/18/18 19:00 Resp 23 07/18/18 19:00 BP 117/63 07/18/18 19:00 Pulse Ox 97 07/18/18 19:00 Intake & Output 07/18/18 07/18/18 07/19/18 06:59 18:59 06:59 Intake Total 341 960 20 Output Total 800 Balance 341 160 20 Intake: IV 240 260 20 Sodium Chloride 0.9% 1, 240 260 20 000 ml @ 20 mls/hr IV . Q24H [facility] Rx#:[id number] Intake, IV Titration 101 Amount Octreotide 200 mcg In 101 Sodium Chloride 0.9% 100 ml @ 25 MCG/HR 12.62 mls/ hr IV .Q8H1M [facility] Rx#: [id number] Oral 700 Output: Urine 800 Other: Voiding Method Bedside Commode Bedside Commode Bedside Commode # Voids 1 # Bowel Movements 1 1 - Exam GENERAL EXAM: Patient is alert and oriented HEENT: Normocephalic. Normal reaction of pupils, No erythema or exudates in the throat. NECK: No masses, supple CHEST: No increased effort noted LUNGS: CTA Equal air entry with no crackles or wheeze. HEART: S1 and S2 Regular rhythm, ABDOMEN: No hepatosplenomegaly, normal bowel sounds, no guarding or rigidity. SKIN: No rashes NEURO: No focal deficits. EXTREMITIES: No cyanosis, clubbing or edema. No Rash - Labs CBC & Chem 7: 07/18/18 15:33 07/18/18 04:12 Labs: Abnormal Lab Results - Last 24 Hours (Table) 07/18/18 07/18/18 07/18/18 Range/Units 04:12 04:12 04:12 RBC 2.61 L (3.80-5.40) m/uL Hgb 7.0 L (11.4-16.0) gm/dL Hct 22.7 L (34.0-46.0) % MCHC (31.0-37.0) g/dL RDW 16.2 H (11.5-15.5) % PT 23.6 H (9.0-12.0) sec INR 2.6 H (<1.2) Creatinine 0.49 L (0.52-1.04) mg/dL POC Glucose (mg/dL) (75-99) mg/dL Calcium 8.2 L (8.4-10.2) mg/dL Phosphorus 5.4 H (2.5-4.5) mg/dL Total Protein 5.2 L (6.3-8.2) g/dL Albumin 2.9 L (3.5-5.0) g/dL 07/18/18 07/18/18 07/18/18 Range/Units 07:14 10:18 12:01 RBC (3.80-5.40) m/uL Hgb (11.4-16.0) gm/dL Hct (34.0-46.0) % MCHC (31.0-37.0) g/dL RDW (11.5-15.5) % PT (9.0-12.0) sec INR (<1.2) Creatinine (0.52-1.04) mg/dL POC Glucose (mg/dL) 190 H 295 H 296 H (75-99) mg/dL Calcium (8.4-10.2) mg/dL Phosphorus (2.5-4.5) mg/dL Total Protein (6.3-8.2) g/dL Albumin (3.5-5.0) g/dL 07/18/18 07/18/18 07/18/18 Range/Units 15:33 17:16 20:36 RBC 2.99 L (3.80-5.40) m/uL Hgb 7.8 L (11.4-16.0) gm/dL Hct 27.1 L (34.0-46.0) % MCHC 28.8 L (31.0-37.0) g/dL RDW 15.7 H (11.5-15.5) % PT (9.0-12.0) sec INR (<1.2) Creatinine (0.52-1.04) mg/dL POC Glucose (mg/dL) 259 H 324 H (75-99) mg/dL Calcium (8.4-10.2) mg/dL Phosphorus (2.5-4.5) mg/dL Total Protein (6.3-8.2) g/dL Albumin (3.5-5.0) g/dL Microbiology - Last 24 Hours (Table) 07/17/18 06:50 Urine Culture - Final Urine,Voided Strep agalactiae - (group b) Assessment and Plan Plan: Assessment and Recommendations: 1. Menhorrhagia: - Improved since admission - COmpleted Sandostatin 2. Acute Blood Loss Anemia on Warfarin: Improved - Bleeding improving, sandostatin per Dr. Wilson 3. Hx: Pulmonary Embolism and on Warfarin from outside hospital greater than 12 years. - Apparent Protein C and S Deficiency (?) - Patient was not coagulopathic on Warfarin and recs are not to stop as she has a high risk of hypercoagulability - Continue Warfarin per Dr. Wilson and monitor CBC and PT/INR Closely 4. Hx: Ischemic Cardiomyopathy Plan: - Restart Warfarin if bleeding resolved - Check CBC in AM - Follow-up as outpatient for possible iron infusions and monitoring of AC therapy and potential need for hypercoag work-up as Deficiency diagnosis made greater than 10 years ago and unable to assess if accurate. Patient does have history of PE 12 years ago.
[2018-07-19] MEDS: SODIUM CHLORIDE 0.9% 1,000 ML IV SCH (05:36)
[2018-07-19 06:08] LABS: Anisocytosis Slight; Basophils % (A) 0 %; Eosinophils # (A) 0.2 k/uL (0-0.7); Eosinophils % (A) 3 %; HCT 22.3 % (34.0-46.0); Hypochromasia Marked; Lymphocytes # (A) 2.1 k/uL (1.0-4.8); Lymphocytes % (A) 30 %; MCH 26.2 pg (25.0-35.0); MCHC 30.6 g/dL (31.0-37.0); Mean Platelet Volume 7.5; Monocytes # (A) 0.3 k/uL (0-1.0); Monocytes % (A) 5 %; Neutrophils # (A) 4.1 k/uL (1.3-7.7); Neutrophils % (A) 60 %; Platelet Count 211 k/uL (150-450); Poikilocytosis Marked; RBC 2.61 m/uL (3.80-5.40); RDW 16.1 % (11.5-15.5); WBC 6.8 k/uL (3.8-10.6)
[2018-07-19 06:11] LABS: MCV 85.5 fL (80.0-100.0)
[2018-07-19 06:13] LABS: HGB 6.8 gm/dL (11.4-16.0)
--- NOTE | 2018-07-19 06:16 | PN ---
PROGRESS NOTE DATE OF SERVICE: 07/18/2018 PRESENTING COMPLAINT: Menorrhagia. INTERVAL HISTORY: This patient was seen by me yesterday in the ICU. Presented with severe bleeding. Hemoglobin was 6.4. Did receive blood. Had a headache earlier today. CT scan was done that came back negative. Sugar has been running high. I did adjust the insulin a couple of times. Overall, patient is feeling better. Vaginal bleeding is coming down. Consultations noted per Hematology and [facility]. The patient did finish the Sandostatin drip. REVIEW OF SYSTEMS: Done for constitutional, cardiovascular, GI, pulmonary; relevant findings as above. CURRENT MEDICATIONS: Current medications are reviewed that include Levemir, Humalog, Provera, Lopressor. PHYSICAL EXAMINATION: On examination, temperature 98.6, pulse 90, respiration 13, blood pressure 115/54, pulse ox 98% on room air. GENERAL APPEARANCE: Sitting up on a chair, awake. EYES: Pupils equal. Conjunctivae pale. NECK: JVD not raised. Mass not palpable. RESPIRATORY: Effort normal. Lungs are clear. CARDIOVASCULAR: First and second sounds normal. No edema. ABDOMEN: Soft, nontender. Liver and spleen not palpable. PSYCHIATRY: Alert and oriented x3. Mood and affect normal. INVESTIGATIONS: LAB: Hemoglobin earlier in the day was 7, repeat was 7.8. Accu-Cheks have been running high 295, 296. ASSESSMENT: 1. Acute severe blood loss anemia symptomatic from severe menorrhagia. 2. Acute on chronic severe menorrhagia from patient being on Coumadin. 3. Morbid obesity, body mass index 47. 4. Diabetes mellitus type 2, chronically on insulin uncontrolled with hyperglycemia. 5. Hypothyroid. 6. Chronic cardiomyopathy with systolic dysfunction, ejection fraction 30% with a viral etiology. 7. Protein C and S deficiency. 8. Chronic pulmonary embolism for which patient is also on Coumadin and for deficiency. 9. Automated implantable cardioverter-defibrillator. PLAN: The patient's Coumadin will be resumed when bleeding has stopped. Insulin is being adjusted as sugars have been running high. Will keep a close eye on the hemoglobin. Care was discussed with the patient per Hematology. No recommendation about change of anticoagulant. Will follow. MMODL / IJN: [id number] /
[2018-07-19 06:19] LABS: Potassium 3.7 mmol/L (3.5-5.1)
[2018-07-19 06:20] LABS: Anion Gap 5 mmol/L; Blood Urea Nitrogen 8 mg/dL (7-17); Calcium 8.4 mg/dL (8.4-10.2); Carbon Dioxide 25 mmol/L (22-30); Chloride 109 mmol/L (98-107); Glucose 86 mg/dL (74-99); Magnesium 1.9 mg/dL (1.6-2.3); Phosphorus 4.2 mg/dL (2.5-4.5); Sodium 139 mmol/L (137-145)
[2018-07-19] MEDS: LEVOTHYROXINE 100 MCG TAB PO SCH (06:41)
[2018-07-19] MEDS: INSULIN ASPART 100 UNIT/ML 1 ML 10 ML VIAL SQ SCH ×8 (06:46→20:54)
[2018-07-19 06:52] LABS: Glucose,Whole Blood 87 mg/dL (75-99)
[2018-07-19 08:12] LABS: Glucose,Whole Blood 99 mg/dL (75-99)
[2018-07-19] MEDS: LISINOPRIL 5 MG TAB PO SCH (08:27)
[2018-07-19] MEDS: ACETAMINOPHEN TAB 325 MG TAB PO PRN (08:27)
[2018-07-19] MEDS: PANTOPRAZOLE 40 MG TABLET PO SCH (08:28)
[2018-07-19] MEDS: METOPROLOL TARTRATE 50 MG TAB PO SCH ×2 (08:28→22:12)
[2018-07-19] MEDS: medroxyPROGESTERone 10 MG TABLET PO SCH (08:28)
[2018-07-19] MEDS: INSULIN DETEMIR 100 UNIT/ML 10 ML VIAL SQ SCH ×2 (08:29→20:53)
[2018-07-19] MEDS ORDERED: INSULIN DETEMIR 100 UNIT/ML 10 ML VIAL SQ SCH (09:00)
--- NOTE | 2018-07-19 09:28 | P.PN ---
Subjective Progress Note Date: 07/19/18 This is a 32-year-old female with history of cardiomyopathy status post AICD placement, was admitted to the hospital with vaginal bleeding and anemia. Her INR was about 2.9. Patient was on Coumadin for history of DVT and pulmonary emboli. Today bleeding has slowed down and patient is feeling better. However , patient was having severe headache. She had a computed tomography scan of the head which did not reveal any intracranial bleeding. However, repeat computed tomography scan is recommended in about 3 days. From cardiac standpoint, patient is stable. Gynecology suggest that patient be tried alternative anticoagulation therapy or [place] filter. Continue current cardiac medical therapy. 07/19/2018: This patient is having little more vaginal bleeding today. Her hemoglobin dropped and patient is getting 1 unit of blood transfusion. Complaints of lower abdominal crampy pains. Denies any chest pain or shortness of breath. Lungs appeared to be clear. Heart is regular. We'll give a small dose of Lasix after transfusion. Cardiac-pillai, patient is stable. Continue current medical therapy. The plan is to resume Coumadin when the bleeding stops. However, if the bleeding recurs, patient may need filter placement or additional gynecologic procedure. Objective - Vital Signs Vital signs: Vital Signs Temp 98.1 F 07/19/18 04:00 Pulse 75 07/19/18 06:00 Resp 14 07/19/18 06:00 BP 104/54 07/19/18 06:00 Pulse Ox 95 07/19/18 06:00 Intake & Output 07/18/18 07/19/18 07/19/18 18:59 06:59 18:59 Intake Total 960 140 Output Total 800 Balance 160 140 Intake: IV 260 140 Sodium Chloride 0.9% 1, 260 140 000 ml @ 20 mls/hr IV . Q24H [facility] Rx#:[id number] Oral 700 Output: Urine 800 Other: Voiding Method Bedside Commode Bedside Commode # Voids 1 # Bowel Movements 1 - Exam GENERAL EXAM: Patient is alert and oriented and doesn't appear to be in any acute distress HEENT: Normocephalic. Normal reaction of pupils, equal size, normal range of extraocular motion. No erythema or exudates in the throat. NECK: No masses, no nuchal rigidity. CHEST: No chest wall deformity. LUNGS: Equal air entry with no crackles or wheeze. HEART: S1 and S2 normal with no audible mumurs or gallops. Regular rhythm, femorals equal on both sides.. ABDOMEN: No hepatosplenomegaly, normal bowel sounds, no guarding or rigidity. SKIN: No rashes CENTRAL NERVOUS SYSTEM: No focal deficits. EXTREMITIES: No cyanosis, clubbing or edema. - Labs CBC & Chem 7: 07/19/18 04:44 07/19/18 04:44 Labs: Abnormal Lab Results - Last 24 Hours (Table) 07/16/18 07/18/18 07/18/18 Range/Units 22:20 10:18 12:01 RBC (3.80-5.40) m/uL Hgb (11.4-16.0) gm/dL Hct (34.0-46.0) % MCHC (31.0-37.0) g/dL RDW (11.5-15.5) % Chloride (98-107) mmol/L Creatinine (0.52-1.04) mg/dL POC Glucose (mg/dL) 295 H 296 H (75-99) mg/dL Crossmatch See Detail 07/18/18 07/18/18 07/18/18 Range/Units 15:33 17:16 20:36 RBC 2.99 L (3.80-5.40) m/uL Hgb 7.8 L (11.4-16.0) gm/dL Hct 27.1 L (34.0-46.0) % MCHC 28.8 L (31.0-37.0) g/dL RDW 15.7 H (11.5-15.5) % Chloride (98-107) mmol/L Creatinine (0.52-1.04) mg/dL POC Glucose (mg/dL) 259 H 324 H (75-99) mg/dL Crossmatch 07/19/18 07/19/18 Range/Units 04:44 04:44 RBC 2.61 L (3.80-5.40) m/uL Hgb 6.8 L* (11.4-16.0) gm/dL Hct 22.3 L (34.0-46.0) % MCHC 30.6 L (31.0-37.0) g/dL RDW 16.1 H (11.5-15.5) % Chloride 109 H (98-107) mmol/L Creatinine 0.45 L (0.52-1.04) mg/dL POC Glucose (mg/dL) (75-99) mg/dL Crossmatch Microbiology - Last 24 Hours (Table) 07/17/18 06:50 Urine Culture - Final Urine,Voided Strep agalactiae - (group b) Assessment and Plan (1) Cardiomyopathy Current Visit: Yes Status: Acute Code(s): I42.9 - CARDIOMYOPATHY, UNSPECIFIED SNOMED Code(s): 22252857 (2) Chronic congestive heart failure Current Visit: Yes Status: Acute Code(s): I50.9 - HEART FAILURE, UNSPECIFIED SNOMED Code(s): 62756934 (3) Cardiac defibrillator in place Current Visit: Yes Status: Acute Code(s): Z95.810 - PRESENCE OF AUTOMATIC ( IMPLANTABLE) CARDIAC DEFIBRILLATOR SNOMED Code(s): 321280158 Plan: Hemoglobin dropped further. Patient is getting additional unit of blood transfusion. Still bleeding. Coumadin is on hold. Coumadin to be resumed when the bleeding stops
--- NOTE | 2018-07-19 09:53 | P.PN ---
Subjective Progress Note Date: 07/19/18 Principal diagnosis: Acute blood loss anemia, secondary to vaginal bleeding, exacerbated by the patient's anticoagulation Pulmonary/critical care note dated July 18 This is a 32-year-old female who presents with acute anemia secondary to vaginal bleeding. This morning, her hemoglobin is 7. Yesterday it was 8.3. Since she has been here, she's received 2 units of packed red blood cells. The bleeding has really slowed down quite a bit. She is having minimal bleeding currently. She's not receiving any supplemental oxygen. Occasionally she is on 2 L nasal cannula. She's getting a saline IV at [facility] and she is on octreotide 25 g per hour but I turned off this morning. Her INR is 2.6. In addition to the vaginal bleeding, she has a history of protein C&S deficiency and a previous history of DVT, nonischemic cardiomyopathy with an ejection fraction of 30%, status post AICD, diabetes obesity hypothyroidism. Currently, the patient is doing reasonably well. She has no pain. She denies any difficulty breathing coughing wheezing or phlegm production. She denies any nausea vomiting diarrhea. As I mentioned, the bleeding has slowed significantly. On 07/19/2018 patient seen in follow-up in the intensive care unit, she is awake alert, in no acute distress, the vaginal bleeding had significantly subsided, no vaginal bleeding at all yesterday, today, no passing of clots. Afebrile, hemodynamically stable, non-tachycardic, sinus rhythm on the monitor, with a rate of 72 BPM, room air pulse ox is 95%. Today's INR has been drawn, and is pending at this time, yesterday's INR is 2.6. Coumadin remains on hold. No shortness of breath no chest pain, patient is tolerating oral diet, today' s hemoglobin is 6.8, patient will receive another unit of packed red blood cells. No plans for intervention from [facility] service. Cardiology is discussing possibility of sending the patient on an alternative anticoagulation , or if the bleeding recurs consider placement of a IVC filter. Objective - Vital Signs Vital signs: Vital Signs Temp 98.3 F 07/19/18 09:38 Pulse 72 07/19/18 09:38 Resp 16 07/19/18 09:38 BP 116/63 07/19/18 09:38 Pulse Ox 95 07/19/18 06:00 Intake & Output 07/18/18 07/19/18 07/19/18 18:59 06:59 18:59 Intake Total 960 140 0 Output Total 800 Balance 160 140 0 Intake: IV 260 140 Sodium Chloride 0.9% 1, 260 140 000 ml @ 20 mls/hr IV . Q24H [facility] Rx#:[id number] Oral 700 Blood Product 0 Rc Cpda-1 Unit 0 [id number] Output: Urine 800 Other: Voiding Method Bedside Commode Bedside Commode # Voids 1 # Bowel Movements 1 - Exam No acute distress, oriented 3. Nasal O2 at [address] HEENT examination is grossly unremarkable. Mucous membranes are moist. No oral lesions. Neck supple. Full range of motion. No adenopathy thyromegaly or neck vein distention. Cardiovascular examination reveals regular rhythm rate. S1-S2 normal. No S3 or S4. No discernible murmur noted. Heart sounds are distant. Lungs reveal clear breath sounds. Breath sounds are equal bilaterally. No adventitious lung sounds including wheezes rhonchi or crackles. Abdomen soft bowel sounds are heard. No masses or tenderness. Abdomen is obese. Extremities are intact. No cyanosis clubbing or edema. Skin is without rash or lesion. Neurologic examination is brief but nonfocal. - Labs CBC & Chem 7: 07/19/18 04:44 07/19/18 04:44 Labs: Abnormal Lab Results - Last 24 Hours (Table) 07/16/18 07/18/18 07/18/18 Range/Units 22:20 10:18 12:01 RBC (3.80-5.40) m/uL Hgb (11.4-16.0) gm/dL Hct (34.0-46.0) % MCHC (31.0-37.0) g/dL RDW (11.5-15.5) % Chloride (98-107) mmol/L Creatinine (0.52-1.04) mg/dL POC Glucose (mg/dL) 295 H 296 H (75-99) mg/dL Crossmatch See Detail 07/18/18 07/18/18 07/18/18 Range/Units 15:33 17:16 20:36 RBC 2.99 L (3.80-5.40) m/uL Hgb 7.8 L (11.4-16.0) gm/dL Hct 27.1 L (34.0-46.0) % MCHC 28.8 L (31.0-37.0) g/dL RDW 15.7 H (11.5-15.5) % Chloride (98-107) mmol/L Creatinine (0.52-1.04) mg/dL POC Glucose (mg/dL) 259 H 324 H (75-99) mg/dL Crossmatch 07/19/18 07/19/18 Range/Units 04:44 04:44 RBC 2.61 L (3.80-5.40) m/uL Hgb 6.8 L* (11.4-16.0) gm/dL Hct 22.3 L (34.0-46.0) % MCHC 30.6 L (31.0-37.0) g/dL RDW 16.1 H (11.5-15.5) % Chloride 109 H (98-107) mmol/L Creatinine 0.45 L (0.52-1.04) mg/dL POC Glucose (mg/dL) (75-99) mg/dL Crossmatch Microbiology - Last 24 Hours (Table) 07/17/18 06:50 Urine Culture - Final Urine,Voided Strep agalactiae - (group b) Assessment and Plan Plan: Assessment: #1. Acute blood loss anemia related to menorrhagia, admission hemoglobin was 6.5, and patient is has received 2 units of packed red blood cells, will be transfused with 2 additional units today for a hemoglobin of 6.8 #2. History of protein C and S deficiency, history of DVT on chronic anticoagulation with Coumadin #3. History of nonischemic cardiomyopathy with ejection fraction of 30%, status post AICD placement #4. Diabetes mellitus type 2 #5. Hypothyroidism #6. Lifetime nonsmoker Plan: Hemodynamic patient remains stable, no recurrence of vaginal bleeding since yesterday. INR is drawn and pending. Coumadin remains on hold, no shortness of breath no chest pain. Patient will be transfused with additional 2 units of packed red blood cells. Patient is stable to transfer out of the intensive care unit to general medical floor. I performed a history & physical examination of the patient and discussed their management with my nurse practitioner, Elizabeth Minor. I reviewed the nurse practitioner's note and agree with the documented findings and plan of care. Lung sounds are clear. The findings and the impression was discussed with the patient. I attest to the documentation by the nurse practitioner. Time with Patient: Greater than 30
[2018-07-19 09:55] LABS: INR 1.8 (<1.2); Prothrombin Time 16.3 sec (9.0-12.0)
[2018-07-19] MEDS: SODIUM FERRIC GLUCONAT-SUCROSE 125 MG in SODIUM CHLORIDE 0.9% 100 ML IVPB SCH (10:08)
[2018-07-19] MEDS ORDERED: MD COMMUNICATION TO PHARMACY 1 EACH MISC PO PRN (10:40)
[2018-07-19] MEDS ORDERED: Pamprin PO PRN (10:45)
[2018-07-19] MEDS ORDERED: [UNRECOGNIZED DRUG - MIXTURE] PO PRN (11:15)
[2018-07-19 12:40] LABS: Glucose,Whole Blood 155 mg/dL (75-99)
[2018-07-19 16:28] LABS: Basophils % (A) 0 %; Eosinophils # (A) 0.1 k/uL (0-0.7); Eosinophils % (A) 2 %; HCT 26.8 % (34.0-46.0); HGB 8.2 gm/dL (11.4-16.0); Hypochromasia Marked; Lymphocytes # (A) 1.8 k/uL (1.0-4.8); Lymphocytes % (A) 21 %; MCH 26.1 pg (25.0-35.0); MCHC 30.5 g/dL (31.0-37.0); MCV 85.6 fL (80.0-100.0); Mean Platelet Volume 7.2; Monocytes # (A) 0.5 k/uL (0-1.0); Monocytes % (A) 6 %; Neutrophils # (A) 5.8 k/uL (1.3-7.7); Neutrophils % (A) 70 %; Platelet Count 226 k/uL (150-450); Poikilocytosis Marked; RBC 3.14 m/uL (3.80-5.40); RDW 15.5 % (11.5-15.5); WBC 8.3 k/uL (3.8-10.6)
[2018-07-19 17:19] LABS: Glucose,Whole Blood 177 mg/dL (75-99)
[2018-07-19 20:47] LABS: Glucose,Whole Blood 204 mg/dL (75-99)
[2018-07-19] MEDS: ATORVASTATIN 10 MG TAB PO SCH (22:12)
[2018-07-19] MEDS ORDERED: WARFARIN 5 MG TAB PO SCH (23:00)
[2018-07-19 23:19] VITALS: RESP 18
--- NOTE | 2018-07-19 23:55 | PN ---
PROGRESS NOTE DATE OF SERVICE: 07/19/2018 PRESENTING COMPLAINT: Menorrhagia. INTERVAL HISTORY: This patient presented with severe menorrhagia, hemoglobin 6.4. Early this morning again dropped her hemoglobin. Another unit of blood was ordered. Patient's sugars are doing much better. The patient had minimal bleeding, if any, yesterday and had small pebble-sized bleeding earlier today. Overall she is feeling much better, tolerating a diet. REVIEW OF SYSTEMS: Done for constitutional, cardiovascular, GI, pulmonary; relevant findings as above. CURRENT MEDICATIONS: Reviewed. PHYSICAL EXAMINATION: Temperature 97.9, pulse 75, respiration 16, blood pressure 120/70, pulse ox 96% on room air. GENERAL APPEARANCE: Sitting up. Comfortable. EYES: Pupils equal. Conjunctivae pale. NECK: JVD not raised. Mass not palpable. RESPIRATORY: Effort normal. Lungs are clear. CARDIOVASCULAR: First and second sounds normal. No edema. ABDOMEN: Soft, non-tender. Liver and spleen not palpable. PSYCHIATRY: Alert and oriented x3. Mood and affect normal. INVESTIGATIONS: Hemoglobin this morning was 6.8. ASSESSMENT: 1. Acute severe blood loss anemia, symptomatic, from severe menorrhalgia. 2. Acute on chronic severe menorrhalgia from patient being on Coumadin. 3. Morbid obesity with body mass index of 47. 4. Diabetes mellitus, type 2, chronically on insulin, uncontrolled with hyperglycemia. 5. Hypothyroid. 6. Chronic cardiomyopathy with systolic dysfunction, ejection fraction 30%, with viral etiology. 7. Protein C and S deficiency. 8. Chronic pulmonary embolism, for which patient was also on Coumadin, and for the C and S deficiency. 9. Automated implantable cardioverter defibrillator. PLAN: Patient has received another unit of blood. Overall doing better. Hoping that patient can be discharged tomorrow. Sugars are better controlled. Will also discontinue the IV fluids. Patient is also ordered IV iron. Also patient's dose earlier of her insulin and Levemir was adjusted. MMODL / IJN: [id number] /
[2018-07-20] MEDS: SODIUM CHLORIDE 0.9% 1,000 ML IV SCH (00:24)
[2018-07-20] MEDS: LEVOTHYROXINE 100 MCG TAB PO SCH (06:29)
[2018-07-20 07:33] VITALS: BP 128/71; PULSE 85; TEMP 98.7
[2018-07-20 07:41] LABS: Glucose,Whole Blood 84 mg/dL (75-99)
[2018-07-20] MEDS: INSULIN ASPART 100 UNIT/ML 1 ML 10 ML VIAL SQ SCH ×4 (08:19→12:09)
[2018-07-20] MEDS: INSULIN DETEMIR 100 UNIT/ML 10 ML VIAL SQ SCH (08:28)
[2018-07-20] MEDS: medroxyPROGESTERone 10 MG TABLET PO SCH (08:28)
[2018-07-20] MEDS: ACETAMINOPHEN TAB 325 MG TAB PO PRN (08:36)
[2018-07-20] MEDS ORDERED: METOPROLOL TARTRATE 25 MG TAB PO SCH (09:00)
[2018-07-20 09:39] LABS: INR 1.2 (<1.2); Prothrombin Time 11.4 sec (9.0-12.0)
[2018-07-20 09:40] LABS: Anion Gap 6 mmol/L; Blood Urea Nitrogen 9 mg/dL (7-17); Calcium 8.7 mg/dL (8.4-10.2); Carbon Dioxide 23 mmol/L (22-30); Chloride 109 mmol/L (98-107); Glucose 131 mg/dL (74-99); Magnesium 1.8 mg/dL (1.6-2.3); Phosphorus 5.4 mg/dL (2.5-4.5); Potassium 4.1 mmol/L (3.5-5.1); Sodium 138 mmol/L (137-145)
[2018-07-20 09:49] LABS: Basophils % (A) 0 %; Eosinophils # (A) 0.1 k/uL (0-0.7); Eosinophils % (A) 2 %; HCT 25.4 % (34.0-46.0); HGB 7.9 gm/dL (11.4-16.0); Hypochromasia Marked; Lymphocytes # (A) 1.4 k/uL (1.0-4.8); Lymphocytes % (A) 21 %; MCH 26.8 pg (25.0-35.0); MCHC 31.2 g/dL (31.0-37.0); MCV 86.1 fL (80.0-100.0); Mean Platelet Volume 7.3; Monocytes # (A) 0.3 k/uL (0-1.0); Monocytes % (A) 5 %; Neutrophils # (A) 4.6 k/uL (1.3-7.7); Neutrophils % (A) 70 %; Platelet Count 202 k/uL (150-450); Poikilocytosis Marked; RBC 2.95 m/uL (3.80-5.40); RDW 15.5 % (11.5-15.5); WBC 6.5 k/uL (3.8-10.6)
[2018-07-20] MEDS: LISINOPRIL 5 MG TAB PO SCH (11:06)
[2018-07-20] MEDS: PANTOPRAZOLE 40 MG TABLET PO SCH (11:06)
[2018-07-20] MEDS: SODIUM FERRIC GLUCONAT-SUCROSE 125 MG in SODIUM CHLORIDE 0.9% 100 ML IVPB SCH (11:06)
[2018-07-20 12:21] LABS: Glucose,Whole Blood 73 mg/dL (75-99)
[2018-07-20 12:21] LABS: Glucose,Whole Blood 65 mg/dL (75-99)
--- NOTE | 2018-07-23 07:38 | DS ---
DISCHARGE SUMMARY DATE OF ADMISSION: 07/16/2018 DATE OF DISCHARGE: 07/20/2018 FINAL DIAGNOSES: 1. Acute severe blood loss anemia symptomatic from severe menorrhagia. 2. Acute on chronic severe menorrhagia from patient being on Coumadin. 3. Morbid obesity, body mass index 47. 4. Diabetes mellitus type 2, chronically on insulin uncontrolled with hyperglycemia. 5. Hypothyroid. 6. Chronic cardiomyopathy with systolic dysfunction, ejection fraction 30% with viral etiology. 7. Protein C and S deficiency. 8. Chronic pulmonary embolism for which the patient was also on Coumadin and for protein C and S deficiency. 9. Automated implantable cardioverter-defibrillator. HOSPITAL COURSE: This is a pleasant 32-year-old patient of Dr. Edwards, has known protein C and S deficiency, cardiomyopathy with EF 30%, felt to be viral in nature, diagnosed 12 years ago. Also has AICD and takes Coumadin for history of pulmonary embolism. The patient normally does get blood clots during menstrual cycle, but this time had a vaginal bleed that was prolonged close to 3 weeks, became dizzy, lightheaded, presented with a hemoglobin of 6.4. Was still having bleeding while she was here. Did get a total of 3 units of blood. Hemoglobin before discharge was 7.9. The patient will need endometrial ablation. Was doing better, more stabilized at the time of discharge and asymptomatic. CONSULTATIONS: Dr. Engle from Critical Care, Dr. Jones from Cardiology, Dr. Wilson from Hematology, Dr. Dover from [facility]. PHYSICAL EXAMINATION: On examination, temperature 98.7, pulse 85, respiratory 18, blood pressure 128/71. INVESTIGATIONS: Hemoglobin currently 7.9. DISCHARGE MEDICATIONS: 1. Aspirin 81 mg a day. 2. Lipitor 10 mg q.h.s. 3. Vitamin D3, 4000 units p.o. daily. 4. Iron 325 p.o. b.i.d. 5. Lasix 40 mg p.o. daily. 6. Probiotic 1 capsule p.o. daily. 7. Synthroid 100 mcg a day. 8. Zestril 10 mg a day. 9. Magnesium 400 mg a day. 10.Lopressor 75 mg b.i.d. 11.Multivitamin 1 tablet p.o. daily. 12.Zegerid 1 capsule p.o. daily. 13.Coumadin 5 mg p.o. q.h.s. 14.Insulin, Lantus, 45 units subcutaneous daily. 15.Insulin, Lispro, per scale. 16.Provera 10 mg p.o. daily. Follow up with Dr. Wilson in 1 week. Follow up with Dr. Edwards in 3 days. Follow up with Dr. Laurie Dover on 07/25/2018; Dr. Navin Neri in 2 weeks. MMPETRAL / [place]: [id number] /
== END 2018-07-20 14:29 | disposition home or self-care (01) | DRG 760 ==
LOC: EC 21:24 → 3SCARD 23:24 → 2SICU 07-17 00:28 → 4MS4W 07-19 18:00
PROVIDERS: ADMIT Hospitalist; ATTEND Hospitalist
PROC: BU4CZZZ Ultrasonography of Uterus and Ovaries (ICD-10-PCS; 2018-07-17)
PROC: 30233N1 Transfusion of Nonautologous Red Blood Cells into Peripheral Vein, Percutaneous Approach (ICD-10-PCS; principal; 2018-07-18)
DX: N92.0 Excessive and frequent menstruation with regular cycle (principal); D68.59 Other primary thrombophilia; I27.82 Chronic pulmonary embolism; D68.32 Hemorrhagic disorder due to extrinsic circulating anticoagulants; I42.9 Cardiomyopathy, unspecified; Z68.42 Body mass index [BMI] 45.0-49.9, adult; D62 Acute posthemorrhagic anemia; T45.515A Adverse effect of anticoagulants, initial encounter; I11.0 Hypertensive heart disease with heart failure; I25.5 Ischemic cardiomyopathy; Z79.01 Long term (current) use of anticoagulants; Z79.4 Long term (current) use of insulin; Z79.82 Long term (current) use of aspirin; Z79.890 Hormone replacement therapy; E78.5 Hyperlipidemia, unspecified; E78.00 Pure hypercholesterolemia, unspecified; E03.9 Hypothyroidism, unspecified; E11.65 Type 2 diabetes mellitus with hyperglycemia; E66.01 Morbid (severe) obesity due to excess calories; Z79.899 Other long term (current) drug therapy; Z80.1 Family history of malignant neoplasm of trachea, bronchus and lung; Z82.49 Family history of ischemic heart disease and other diseases of the circulatory system; Z83.3 Family history of diabetes mellitus; Z90.49 Acquired absence of other specified parts of digestive tract; Z95.810 Presence of automatic (implantable) cardiac defibrillator; Z88.2 Allergy status to sulfonamides; Z88.8 Allergy status to other drugs, medicaments and biological substances; B33.24 Viral cardiomyopathy; Z53.9 Procedure and treatment not carried out, unspecified reason
CPT/HCPCS: 36415; 70450; 76830; 80048; 80053; 81001; 83036; 83735; 84100; 84702; 85025; 85027; 85610; 85730; 86850; 86900; 86901; 86920; 87086; 93975; 99285

== ENCOUNTER → 2018-07-28 | Outpatient (CLI) | payer OTHER ==
[2018-07-28 09:59] LABS: INR 2.1 (<1.2); Prothrombin Time 20.2 sec (9.0-12.0)
[2018-07-28 17:45] LABS: Albumin 3.9 g/dL (3.80-4.90); Albumin/Globulin Ratio 2.6 (1.20-2.10); Anion Gap 5.5 mmol/L (4.00-12.00); Calcium 8.9 mg/dL (8.7-10.3); Carbon Dioxide 27.5 mmol/L (21.6-31.8); Globulin 1.5 g/dL (2.1-3.7); Potassium 4.5 mmol/L (3.5-5.5); Total Bilirubin 0.5 mg/dL (0.3-1.2); Total Protein 5.4 g/dL (6.2-8.2)
[2018-07-28 17:51] LABS: T4, Free (Free Thyroxine) 1.4 ng/dL (0.80-1.80)
[2018-07-28 18:06] LABS: Iron Saturation 4.63 (12.00-45.00)
[2018-07-28 19:56] LABS: Hemoglobin A1C 6.9 % (4.0-6.0)
== END | disposition home or self-care (01) ==
LOC: LABWHC1 08:49
PROVIDERS: ATTEND Family Medicine
DX: E11.65 Type 2 diabetes mellitus with hyperglycemia (principal); E03.9 Hypothyroidism, unspecified; I42.9 Cardiomyopathy, unspecified; N93.8 Other specified abnormal uterine and vaginal bleeding; D50.9 Iron deficiency anemia, unspecified
CPT/HCPCS: 36415; 80053; 80061; 82043; 82570; 82728; 82747; 83036; 83540; 83550; 84439; 84443; 84481; 85610

== ENCOUNTER → 2018-07-28 | Outpatient (CLI) | payer OTHER ==
[2018-07-28 10:13] LABS: Basophils % (A) 1 %; Eosinophils # (A) 0.1 k/uL (0-0.7); Eosinophils % (A) 2 %; HCT 32.6 % (34.0-46.0); Hypochromasia Marked; Lymphocytes # (A) 1.4 k/uL (1.0-4.8); Lymphocytes % (A) 27 %; MCH 24.8 pg (25.0-35.0); MCHC 28.7 g/dL (31.0-37.0); MCV 86.5 fL (80.0-100.0); Mean Platelet Volume 8.2; Monocytes # (A) 0.2 k/uL (0-1.0); Monocytes % (A) 4 %; Neutrophils # (A) 3.4 k/uL (1.3-7.7); Neutrophils % (A) 64 %; Platelet Count 194 k/uL (150-450); Poikilocytosis Marked; RBC 3.78 m/uL (3.80-5.40); RDW 15.9 % (11.5-15.5); WBC 5.3 k/uL (3.8-10.6)
[2018-07-28 10:22] LABS: HGB 9.4 gm/dL (11.4-16.0)
[2018-07-28 13:19] LABS: Large Platelets Present
== END | disposition home or self-care (01) ==
LOC: LABPAT 08:52
PROVIDERS: ATTEND Obstetrics & Gynecology
DX: Z01.818 Encounter for other preprocedural examination (principal); Z01.812 Encounter for preprocedural laboratory examination
CPT/HCPCS: 36415; 85025; 93005

== ENCOUNTER 2018-07-30 08:29 | Day surgery (SDC) | payer OTHER ==
[2018-07-25 15:51] VITALS: BMI 48.7
[~2018-07-30 08:29] MED LIST: DEXAMETHASONE SOD PHOSPHATE 10 MG/ML 1 ML VIAL IV ONE; HYDROmorphone 0.5 MG/0.5 ML SYRINGE IVP PRN; LACTATED RINGERS 1,000 ML IV SCH; LIDOCAINE 1% 20 ML VIAL (10MG/ML) FOR IV START INTRADERMA PRN; MIDAZOLAM 2 MG/2 ML VIAL IV PRN; ONDANSETRON 4 MG/2 ML VIAL IVP ONE; Pre Op ABX Message 1 EACH MISC MISCELLANE ONE; SCOPOLAMINE 1.5MG/72HR PATCH TRANSDERM ONE
[2018-07-30 09:20] LABS: Glucose,Whole Blood 305 mg/dL (75-99)
[2018-07-30] MEDS ORDERED: INSULIN ASPART (NovoLOG) 100 UNIT/ML VIAL SQ ONE (09:30)
[2018-07-30] MEDS ORDERED: fentaNYL (PF) 50 MCG/ML 2 ML AMP ONE (09:32)
[2018-07-30] MEDS ORDERED: PROPOFOL 10 MG/ML 20 ML VIAL IV ONE (09:32)
[2018-07-30] MEDS ORDERED: LIDOCAINE 1% INJ 10MG/ML (20 ML MDV) ONE (09:32)
[2018-07-30] MEDS ORDERED: KETOROLAC 30 MG/ML 1 ML VIAL ONE (09:32)
[2018-07-30] MEDS ORDERED: MIDAZOLAM 2 MG/2 ML VIAL ONE (09:32)
[2018-07-30] MEDS ORDERED: SUCCINYLCHOLINE CHLORIDE 100 MG/5 ML SYR IV ONE (09:32)
[2018-07-30 09:35] LABS: INR 1.9 (<1.2); Prothrombin Time 18.9 sec (9.0-12.0)
--- NOTE | 2018-07-30 10:09 | P.OP ---
Date of Procedure: 07/30/18 Preoperative Diagnosis: Menorrhagia, significant anemia, undesired fertility Postoperative Diagnosis: Same, no obvious uterine fibroids polyps or defects Procedure(s) Performed: Hysteroscopy, NovaSure endometrial ablation Anesthesia: ADRIANOA Surgeon: Laurie Dover Break Out Man #1: Stated None Estimated Blood Loss (ml): 5 IV fluids (ml): 200 Urine output (ml): 100 Pathology: none sent Condition: stable Disposition: PACU Operative Findings: Essentially normal-appearing intrauterine cavity, grade 2 rectocele Description of Procedure: Patient is brought to the [facility] suite where a general anesthetic is administered without difficulty. She's placed in the dorsal lithotomy position. Urine hCG is negative. Antibiotics are not deemed appropriate. 4 units of insulin were given for admission blood sugar 304. The appropriate timeout is performed to assure proper patient and procedural identification. The perineal body is prepped and draped in usual sterile fashion. Examination under anesthesia reveals an anteverted uterus, negative adnexa bilaterally. Weighted speculum was placed into the vagina. Bladder is drained for approximately 100 mL of clear yellow urine. The weighted speculum was placed into the vagina. The anterior lip of the cervix is grasped with a double-tooth tenaculum. Uterus sounds to a depth of 10.5 cm in the anteverted position. Cervix is gently and systematically dilated using Hanks dilators. The hysteroscope was introduced and fluid is infused. The cavity is distended and inspected. A fair amount of proliferative appearing, shaggy tissue is noted. No obvious polyps or fibroids. Hysteroscope was removed. The NovaSure wand is then placed and seated appropriately. Intrauterine with of 4.3 cm, length of 6.5 cm is calibrated. The machine is enabled. For 40 seconds with a power the 154 W the procedure is carried out. When the machine shuts off, the wand is reduced and removed. Hysteroscope was once again introduced. Cavity is noted to be uniformly blanched. All sponge needle and enhancement counts are correct at the end of the procedure. Cervix is dry. Patient is brought back to recovery room in very good condition with stable vital signs including a blood pressure of 130/60, pulse of 91. Toradol is given prior to leaving the operative suite. Patient will follow-up with me in the office in 2 weeks.
[2018-07-30 10:27] LABS: Glucose,Whole Blood 294 mg/dL (75-99)
[2018-07-30 10:29] VITALS: TEMP 98.2
[2018-07-30 11:37] VITALS: RESP 16
[2018-07-30] MEDS ORDERED: ACETAMINOPHEN TAB 500 MG TAB PO ONE (12:02)
[2018-07-30 12:18] LABS: Glucose,Whole Blood 274 mg/dL (75-99)
[2018-07-30 12:26] VITALS: BP 113/72; PULSE 71
== END 2018-07-30 12:42 | disposition home or self-care (01) ==
LOC: OR 08:29
PROVIDERS: ATTEND Obstetrics & Gynecology
DX: N92.0 Excessive and frequent menstruation with regular cycle (principal); D64.9 Anemia, unspecified; E11.9 Type 2 diabetes mellitus without complications; G43.909 Migraine, unspecified, not intractable, without status migrainosus; I11.0 Hypertensive heart disease with heart failure; I50.9 Heart failure, unspecified; E78.5 Hyperlipidemia, unspecified; E07.9 Disorder of thyroid, unspecified; Z79.82 Long term (current) use of aspirin; Z79.890 Hormone replacement therapy; Z79.4 Long term (current) use of insulin; Z95.810 Presence of automatic (implantable) cardiac defibrillator; Z82.49 Family history of ischemic heart disease and other diseases of the circulatory system; Z83.3 Family history of diabetes mellitus; Z86.711 Personal history of pulmonary embolism
CPT/HCPCS: 58563; 81025; 85610; J2250; J1100; J2405; J2001; J3010; J1885; J0330; J2704; J1170; 86850; 86900; 86901

== ENCOUNTER → 2018-09-25 | Outpatient (CLI) | payer OTHER ==
[2018-09-25 12:07] LABS: Basophils % (A) 1 %; Eosinophils # (A) 0.2 k/uL (0-0.7); Eosinophils % (A) 3 %; HCT 41.6 % (34.0-46.0); Hypochromasia Slight; Lymphocytes # (A) 1.5 k/uL (1.0-4.8); Lymphocytes % (A) 25 %; MCH 25.6 pg (25.0-35.0); MCV 82.6 fL (80.0-100.0); Mean Platelet Volume 7.7; Monocytes # (A) 0.3 k/uL (0-1.0); Monocytes % (A) 4 %; Neutrophils # (A) 3.9 k/uL (1.3-7.7); Neutrophils % (A) 67 %; Platelet Count 212 k/uL (150-450); RBC 5.04 m/uL (3.80-5.40); RDW 14.5 % (11.5-15.5); WBC 5.9 k/uL (3.8-10.6)
[2018-09-25 12:13] LABS: HGB 12.9 gm/dL (11.4-16.0)
[2018-09-25 17:17] LABS: Albumin 3.7 g/dL (3.80-4.90); Albumin/Globulin Ratio 2.06 (1.60-3.17); Anion Gap 8.1 mmol/L (4.00-12.00); Calcium 8.8 mg/dL (8.7-10.3); Carbon Dioxide 27.9 mmol/L (21.6-31.8); Globulin 1.8 g/dL (1.6-3.3); Potassium 4.4 mmol/L (3.5-5.5); Total Bilirubin 0.7 mg/dL (0.2-1.2); Total Protein 5.5 g/dL (6.2-8.2)
[2018-09-25 17:25] LABS: T4, Free (Free Thyroxine) 1.4 ng/dL (0.80-1.80)
[2018-09-25 20:10] LABS: Hemoglobin A1C 10.2 % (4.0-6.0)
== END | disposition home or self-care (01) ==
LOC: LABWHC1 09:11
PROVIDERS: ATTEND Family Medicine
DX: E11.65 Type 2 diabetes mellitus with hyperglycemia (principal); E03.9 Hypothyroidism, unspecified
CPT/HCPCS: 36415; 80053; 80061; 82043; 82570; 83036; 84439; 84443; 84481; 85025